=== PATIENT | male | born 1940 | race Caucasian/White ===

== ENCOUNTER → 2017-03-09 | Outpatient (CLI) | payer MEDICARE ==
[~2017-03-09] MED LIST: ASPI1TAB PO; AZIL1TAB PO; FISH5CAP PO; FURO40TA2 PO; KLOR1TAB69 PO; METO-207 PO; PRAV40TA2 PO; PRESCAP PO; REFR0.5D8 OU; ROPI0.5T PO; ROPI1TAB PO; SINE25TA5 PO; TOPR50TA PO; VITA10006 PO; VITMTA PO; XARE20TA PO
[2017-03-09 13:19] LABS: BASO # 0.1 K/mm3 (0.0-0.2); BASO % 0.6 % (0.0-1.0); EOS # 0.2 K/mm3 (0.0-0.50); EOS % 1.5 % (0.0-3.0); LARGE UNSTAINED CELL # 0.1 K/mm3 (0.0-0.4); LARGE UNSTAINED CELL % 1.4 % (0.0-4.0); LYMPH # 1.9 K/mm3 (1.5-4.5); LYMPH % 17.2 % (24.0-44.0); MEAN CORPUSCULAR HEMOGLOBIN 31.8 pg (27.0-33.0); MEAN CORPUSCULAR HGB CONC 33.7 g/dl (32.0-36.5); MEAN CORPUSCULAR VOLUME 94.1 fl (80.0-96.0); MONO # 0.5 K/mm3 (0.0-0.8); MONO % 4.7 % (0.0-5.0); NEUTROPHILS # 7.8 K/mm3 (1.8-7.7); NEUTROPHILS % 74.6 % (36.0-66.0); PLATELET COUNT, AUTOMATED 134 k/mm3 (150-450); RED CELL DISTRIBUTION WIDTH 13.4 % (11.5-14.5); WHITE BLOOD COUNT 10.4 K/mm3 (4.0-10.0)
[2017-03-09 14:11] LABS: ALBUMIN/GLOBULIN RATIO 1.29 (1.00-1.93); ALKALINE PHOSPHATASE 61 U/L (45-117); ALT/SGPT 26 U/L (12-78); ANION GAP 8 MEQ/L (8-16); AST/SGOT 16 U/L (15-37); BILIRUBIN,TOTAL 1.1 MG/DL (0.2-1.0); BLOOD UREA NITROGEN 19 MG/DL (7-18); CARBON DIOXIDE LEVEL 31 MEQ/L (21-32); CHLORIDE LEVEL 102 MEQ/L (98-107); CHOLESTEROL LEVEL 82 MG/DL (<200); CREATININE FOR GFR 0.98 MG/DL (0.70-1.30); GLOMERULAR FILTRATION RATE > 60.0 (>42); GLUCOSE, FASTING 146 MG/DL (83-110); POTASSIUM SERUM 4.1 MEQ/L (3.5-5.1); SODIUM LEVEL 141 MEQ/L (136-145); TOTAL PROTEIN 7.1 GM/DL (6.4-8.2); TRIGLYCERIDES LEVEL 91 MG/DL (<150)
== END ==
LOC: M SMT 11:13
PROVIDERS: ATTEND Family Medicine
DX: E11.65 Type 2 diabetes mellitus with hyperglycemia (principal); I48.0 Paroxysmal atrial fibrillation

== ENCOUNTER → 2017-06-14 | Outpatient (CLI) | payer MEDICARE ==
[~2017-06-14] MED LIST changes: -METO-207 PO; +METO1TAB7 PO
[2017-06-14 13:35] LABS: ALBUMIN 4.1 GM/DL (3.2-5.2); ALBUMIN/GLOBULIN RATIO 1.46 (1.00-1.93); ALKALINE PHOSPHATASE 50 U/L (45-117); ALT/SGPT 18 U/L (12-78); ANION GAP 6 MEQ/L (8-16); AST/SGOT 21 U/L (15-37); BILIRUBIN,TOTAL 0.8 MG/DL (0.2-1.0); BLOOD UREA NITROGEN 22 MG/DL (7-18); CALCIUM LEVEL 8.7 MG/DL (8.8-10.2); CARBON DIOXIDE LEVEL 31 MEQ/L (21-32); CHLORIDE LEVEL 103 MEQ/L (98-107); CHOLESTEROL LEVEL 68 MG/DL (<200); CREATININE FOR GFR 0.96 MG/DL (0.70-1.30); GLOMERULAR FILTRATION RATE > 60.0 (>42); GLUCOSE, FASTING 116 MG/DL (83-110); POTASSIUM SERUM 4.3 MEQ/L (3.5-5.1); SODIUM LEVEL 140 MEQ/L (136-145); TOTAL PROTEIN 6.9 GM/DL (6.4-8.2); TRIGLYCERIDES LEVEL 49 MG/DL (<150)
== END ==
LOC: M SMT 08:15
PROVIDERS: ATTEND Family Medicine
DX: E11.65 Type 2 diabetes mellitus with hyperglycemia (principal); E78.5 Hyperlipidemia, unspecified

== ENCOUNTER → 2017-09-11 | Outpatient (CLI) | payer MEDICARE ==
[2017-09-11 14:56] LABS: ANION GAP 4 MEQ/L (8-16); BLOOD UREA NITROGEN 18 MG/DL (7-18); CALCIUM LEVEL 8.6 MG/DL (8.8-10.2); CARBON DIOXIDE LEVEL 35 MEQ/L (21-32); CHLORIDE LEVEL 100 MEQ/L (98-107); CREATININE FOR GFR 0.93 MG/DL (0.70-1.30); GLOMERULAR FILTRATION RATE > 60.0 (>42); GLUCOSE, FASTING 123 MG/DL (83-110); SODIUM LEVEL 139 MEQ/L (136-145)
== END ==
LOC: M SMT 11:23
PROVIDERS: ATTEND Family Medicine
DX: E11.65 Type 2 diabetes mellitus with hyperglycemia (principal); E78.5 Hyperlipidemia, unspecified; R05 Cough

== ENCOUNTER → 2018-03-22 | Outpatient (CLI) | payer MEDICARE | LOC: M SMT 10:33 | DX: J16.8 Pneumonia due to other specified infectious organisms (principal) | CPT/HCPCS: 71046 ==

== ENCOUNTER → 2018-06-12 | Outpatient (CLI) | payer MEDICARE ==
[2018-06-12 13:36] LABS: ALBUMIN/GLOBULIN RATIO 1.25 (1.00-1.93); ALKALINE PHOSPHATASE 57 U/L (45-117); ALT/SGPT 16 U/L (12-78); ANION GAP 6 MEQ/L (8-16); AST/SGOT 21 U/L (7-37); BILIRUBIN,TOTAL 1.2 MG/DL (0.2-1.0); BLOOD UREA NITROGEN 24 MG/DL (7-18); CALCIUM LEVEL 8.9 MG/DL (8.8-10.2); CARBON DIOXIDE LEVEL 32 MEQ/L (21-32); CHLORIDE LEVEL 102 MEQ/L (98-107); CHOLESTEROL LEVEL 66 MG/DL (<200); CHOLESTEROL RISK RATIO 1.736 (<5); CREATININE FOR GFR 1.05 MG/DL (0.70-1.30); ESTIMATED AVERAGE GLUCOSE 157 MG/DL (60-110); FREE T4 1.04 NG/DL (0.76-1.46); GLOMERULAR FILTRATION RATE > 60.0 (>42); GLUCOSE, FASTING 152 MG/DL (70-100); HDL CHOLESTEROL 38 MG/DL (>40); HEMOGLOBIN A1c 7.1 %; LDL CHOLESTEROL 17.4 MG/DL (<100); NON-HDL-C 28 MG/DL; POTASSIUM SERUM 4.6 MEQ/L (3.5-5.1); SODIUM LEVEL 140 MEQ/L (136-145); THYROID STIMULATING HORMONE 0.978 uIU/ML (0.358-3.740); TOTAL PROTEIN 7.2 GM/DL (6.4-8.2); TRIGLYCERIDES LEVEL 53 MG/DL (<150)
[2018-06-12 13:42] LABS: CREATININE, URINE 40.5 MG/DL; MALB URINE SIEMENS < 5.0 MG/L; MAU/CREAT RATIO 12.3 MCG/MG (0.0-30.0)
== END ==
LOC: M SMT 09:02
DX: E11.65 Type 2 diabetes mellitus with hyperglycemia (principal); E78.5 Hyperlipidemia, unspecified
CPT/HCPCS: 84443

== ENCOUNTER → 2018-09-21 | Outpatient (CLI) | payer MEDICARE ==
[2018-09-21 13:27] LABS: ANION GAP 6 MEQ/L (8-16); BLOOD UREA NITROGEN 22 MG/DL (7-18); CALCIUM LEVEL 9.4 MG/DL (8.8-10.2); CARBON DIOXIDE LEVEL 35 MEQ/L (21-32); CHLORIDE LEVEL 100 MEQ/L (98-107); CREATININE FOR GFR 1.06 MG/DL (0.70-1.30); GLOMERULAR FILTRATION RATE > 60.0 (>42); GLUCOSE, FASTING 211 MG/DL (70-100); POTASSIUM SERUM 4.5 MEQ/L (3.5-5.1); SODIUM LEVEL 141 MEQ/L (136-145)
[2018-09-21 15:03] LABS: ESTIMATED AVERAGE GLUCOSE 177 MG/DL (60-110); HEMOGLOBIN A1c 7.8 %
== END ==
LOC: M SMT 08:41
DX: Z00.00 Encounter for general adult medical examination without abnormal findings (principal); E11.65 Type 2 diabetes mellitus with hyperglycemia
CPT/HCPCS: 83036

== ENCOUNTER → 2019-03-21 | Outpatient (CLI) | payer MEDICARE ==
[~2019-03-21] MED LIST changes: -ASPI1TAB PO; +ASPI81TA26 PO
[2019-03-21 14:07] LABS: BASO % 0.5 % (0.0-1.0); EOS # 0.1 10^3/uL (0.0-0.50); EOS % 1.5 % (0.0-3.0); HEMATOCRIT 45.2 % (42.0-52.0); HEMOGLOBIN 14.6 g/dl (13.5-17.5); LYMPH # 1.6 10^3/uL (1.5-4.5); LYMPH % 20.1 % (24.0-44.0); MEAN CORPUSCULAR HEMOGLOBIN 30.9 pg (27.0-33.0); MEAN CORPUSCULAR HGB CONC 32.3 g/dl (32.0-36.5); MEAN CORPUSCULAR VOLUME 95.6 fl (80.0-96.0); MONO # 0.6 10^3/uL (0.0-0.8); MONO % 7.3 % (0.0-5.0); NEUTROPHILS # 5.5 10^3/uL (1.8-7.7); NEUTROPHILS % 70.1 % (36.0-66.0); PLATELET COUNT, AUTOMATED 132 10^3/uL (150-450); RED BLOOD COUNT 4.73 10^6/uL (4.30-6.10); WHITE BLOOD COUNT 7.8 10^3/uL (4.0-10.0)
[2019-03-21 14:21] LABS: ALT/SGPT 21 U/L (12-78); BILIRUBIN,TOTAL 0.7 MG/DL (0.2-1.0); BLOOD UREA NITROGEN 21 MG/DL (7-18); CALCIUM LEVEL 9.4 MG/DL (8.8-10.2); CARBON DIOXIDE LEVEL 29 MEQ/L (21-32); CHLORIDE LEVEL 102 MEQ/L (98-107); CHOLESTEROL LEVEL 64 MG/DL (<200); CHOLESTEROL RISK RATIO 1.828 (<5); CREATININE FOR GFR 0.93 MG/DL (0.70-1.30); GLOMERULAR FILTRATION RATE > 60.0 (>42); GLUCOSE, FASTING 132 MG/DL (70-100); HDL CHOLESTEROL 35 MG/DL (>40); LDL CHOLESTEROL 20 MG/DL (<100); NON-HDL-C 29 MG/DL; POTASSIUM SERUM 4.4 MEQ/L (3.5-5.1); SODIUM LEVEL 139 MEQ/L (136-145); TOTAL PROTEIN 6.5 GM/DL (6.4-8.2); TRIGLYCERIDES LEVEL 47 MG/DL (<150)
[2019-03-21 15:38] LABS: HEMOGLOBIN A1c 7.4 %
== END ==
LOC: M SMT 09:40
PROVIDERS: ATTEND Family Medicine
DX: E11.65 Type 2 diabetes mellitus with hyperglycemia (principal); E78.5 Hyperlipidemia, unspecified; I11.0 Hypertensive heart disease with heart failure

== ENCOUNTER → 2019-08-26 | Outpatient (CLI) | payer MEDICARE ==
[2019-08-26 13:59] LABS: BASO # 0.1 10^3/uL (0.0-0.2); BASO % 0.6 % (0.0-1.0); EOS # 0.2 10^3/uL (0.0-0.5); EOS % 1.7 % (0.0-3.0); HEMATOCRIT 47.2 % (42.0-52.0); HEMOGLOBIN 14.7 g/dl (13.5-17.5); LYMPH # 1.5 10^3/uL (1.5-5.0); MEAN CORPUSCULAR HEMOGLOBIN 29.9 pg (27.0-33.0); MEAN CORPUSCULAR HGB CONC 31.1 g/dl (32.0-36.5); MEAN CORPUSCULAR VOLUME 95.9 fl (80.0-96.0); MONO # 0.8 10^3/uL (0.0-0.8); MONO % 8.1 % (0.0-5.0); NEUTROPHILS # 7.2 10^3/uL (1.5-8.5); NEUTROPHILS % 73.9 % (36.0-66.0); PLATELET COUNT, AUTOMATED 195 10^3/uL (150-450); RED BLOOD COUNT 4.92 10^6/uL (4.30-6.10); WHITE BLOOD COUNT 9.8 10^3/uL (4.0-10.0)
[2019-08-26 14:03] LABS: ALT/SGPT 16 U/L (12-78); BILIRUBIN,TOTAL 0.9 MG/DL (0.2-1.0); BLOOD UREA NITROGEN 22 MG/DL (7-18); CALCIUM LEVEL 9.1 MG/DL (8.8-10.2); CARBON DIOXIDE LEVEL 30 MEQ/L (21-32); CHLORIDE LEVEL 100 MEQ/L (98-107); CREATININE FOR GFR 1.03 MG/DL (0.70-1.30); GLOMERULAR FILTRATION RATE > 60.0 (>42); GLUCOSE, FASTING 135 MG/DL (70-100); POTASSIUM SERUM 4.4 MEQ/L (3.5-5.1); SODIUM LEVEL 137 MEQ/L (136-145); TOTAL PROTEIN 7.3 GM/DL (6.4-8.2)
== END ==
LOC: M SMT 09:30
PROVIDERS: ATTEND Physician Assistant
DX: Z00.00 Encounter for general adult medical examination without abnormal findings (principal); E11.65 Type 2 diabetes mellitus with hyperglycemia; I48.20 Chronic atrial fibrillation, unspecified

== ENCOUNTER 2020-02-22 11:02 | Inpatient (IN) | payer MEDICARE ==
[~2020-02-22] VITALS: Ht 175.3 cm; Wt 80.9 kg
[~2020-02-22 11:02] MED LIST changes: -ROPI0.5T PO; +ROPI0.5T3 PO; -ROPI1TAB PO; +ROPI1TAB3 PO
[2020-02-22 11:50] LABS: BASO % 0.2 % (0.0-1.0); EOS # 0.1 10^3/uL (0.0-0.5); EOS % 1.1 % (0.0-3.0); HEMATOCRIT 29.9 % (42.0-52.0); HEMOGLOBIN 9.2 g/dl (13.5-17.5); LYMPH # 0.7 10^3/uL (1.5-5.0); LYMPH % 5.9 % (24.0-44.0); MEAN CORPUSCULAR HEMOGLOBIN 26.7 pg (27.0-33.0); MEAN CORPUSCULAR HGB CONC 30.8 g/dl (32.0-36.5); MEAN CORPUSCULAR VOLUME 86.9 fl (80.0-96.0); MONO # 0.5 10^3/uL (0.0-0.8); MONO % 4.6 % (0.0-5.0); NEUTROPHILS # 9.8 10^3/uL (1.5-8.5); NEUTROPHILS % 87.4 % (36.0-66.0); PLATELET COUNT, AUTOMATED 261 10^3/uL (150-450); RED BLOOD COUNT 3.44 10^6/uL (4.30-6.10); WHITE BLOOD COUNT 11.2 10^3/uL (4.0-10.0)
[2020-02-22] MEDS ORDERED: LISI-1046 PO (12:06)
[2020-02-22] MEDS ORDERED: AMAN100T PO (12:06)
[2020-02-22] MEDS ORDERED: SPIR-10 PO (12:06)
[2020-02-22] MEDS ORDERED: QUET5TAB PO (12:06)
[2020-02-22] MEDS ORDERED: METF-791 PO (12:06)
[2020-02-22] MEDS ORDERED: JARD1TAB PO (12:06)
[2020-02-22] MEDS ORDERED: METF-839 PO (12:06)
[2020-02-22] MEDS ORDERED: DIGO0.253 PO (12:06)
[2020-02-22] MEDS ORDERED: QUET1TAB7 PO (12:06)
[2020-02-22] MEDS ORDERED: ATOR40TA75 PO (12:06)
[2020-02-22] MEDS ORDERED: BISO5TAB14 PO (12:06)
[2020-02-22 12:23] LABS: ALBUMIN 3.6 GM/DL (3.2-5.2); ALT/SGPT 9 U/L (12-78); BILIRUBIN,DIRECT 0.2 MG/DL (0.0-0.2); BILIRUBIN,TOTAL 0.6 MG/DL (0.2-1.0); BLOOD UREA NITROGEN 42 MG/DL (7-18); CARBON DIOXIDE LEVEL 26 MEQ/L (21-32); CHLORIDE LEVEL 98 MEQ/L (98-107); CK-MB VALUE MASS 1.6 NG/ML (<3.6); CPK CREATINE PHOSPHOKINASE 44 U/L (39-308); CREATININE FOR GFR 1.91 MG/DL (0.70-1.30); GLOMERULAR FILTRATION RATE 36.5 (>42); GLUCOSE, FASTING 157 MG/DL (70-100); MB/CK RELATIVE INDEX 3.64 (< OR =4); NT-PRO BNP 2987 PG/ML (<450); POTASSIUM SERUM 4.7 MEQ/L (3.5-5.1); SODIUM LEVEL 134 MEQ/L (136-145); TOTAL PROTEIN 6.8 GM/DL (6.4-8.2); TROPONIN I < 0.02 NG/ML (< 0.10)
--- NOTE | 2020-02-22 12:24 | REP ---
Clinical: Cough and dyspnea . Comparison: 03/22/2018 . Findings: The mediastinum and cardiac silhouette are stable and within normal limits for portable technique. The lung cota are clear without acute consolidation, effusion, or pneumothorax. Skeletal structures are intact. Impression: No acute cardiopulmonary process appreciated. Electronically Signed by Isma Byrd MD 02/22/2020 12:15 P
[2020-02-22] MEDS ORDERED: NS 1,000 ML IV ONE ×2 (12:45→17:00)
[2020-02-22 13:13] LABS: INR 1.83
[2020-02-22 13:14] LABS: PARTIAL THROMBOPLASTIN TIME 35.3 SECONDS (25.0-38.4)
[2020-02-22 13:16] LABS: D-DIMER QUANT 902.58 ng/ml (<500)
[2020-02-22 13:23] LABS: C REACTIVE PROTEIN QUANTITATIV < 0.30 MG/DL (0.00-0.30); FERRITIN 42 NG/ML (26-388); LDH LACTATE DEHYDROGENASE 154 U/L (87-241)
--- NOTE | 2020-02-22 14:28 | REP ---
Clinical: Chest pain with nausea and vomiting. Elevated lipase levels. Technique: Axial noncontrast images from the thoracic inlet to the upper abdomen with coronal and sagittal re-formations. Findings: Early emphysematous changes are appreciated along with mild bronchiectasis. No focal consolidation, significant nodule, or mass lesion appreciated. No pleural effusion. No pneumothorax. No obvious adenopathy. Mediastinum demonstrates atherosclerotic changes to the thoracic aorta and coronary arteries without aortic aneurysm or cardiomegaly. No pericardial effusion. Enlarged left thyroid lobe noted. Musculoskeletal structures demonstrate age-related degenerative changes without focal abnormality. Impression: 1. Early emphysematous changes. 2. No acute pleuroparenchymal process. 3. Enlarged left thyroid lobe suggesting goiter. Electronically Signed by Isma Byrd MD 02/22/2020 02:20 P
--- NOTE | 2020-02-22 14:32 | REP ---
Clinical: Abdominal pain with nausea and vomiting. Elevated lipase levels. Technique: Axial noncontrast images from the lung bases to the pubic symphysis with coronal and sagittal re-formations. Findings: Liver, spleen, pancreas, bilateral adrenal glands and kidneys are normal for noncontrast evaluation. Cholelithiasis noted without acute cholecystitis. The enteric system is without obstruction or acute inflammatory process. Scattered colonic diverticula noted without acute diverticulitis. Pelvis demonstrates normal bladder along with mild prostatomegaly. No ascites. No free air. No adenopathy. Atherosclerotic changes to the aorta and vasculature noted without aneurysm. Musculoskeletal structures demonstrate degenerative changes without osseous abnormality. Impression: 1. Cholelithiasis. 2. Diverticulosis. 3. No acute abdominopelvic pathology appreciated. Electronically Signed by Isma Byrd MD 02/22/2020 02:23 P
[2020-02-22] MEDS ORDERED: VANCOMYCIN HCL 1,000 MG, VIAL MATE ADAPTER 1 EACH in D5W 250 ML IV ONE (14:45)
[2020-02-22] MEDS ORDERED: PIPERACILLIN/TAZOBACTAM SOD 3.375 GM in D5W MINI-BAG PLUS 50 ML IV ONE (14:45)
[2020-02-22] MEDS ORDERED: ACETAMINOPHEN TAB 650MG DOSE (2X325MG) PO PRN (16:30)
[2020-02-22] MEDS ORDERED: ASCO500T PO (16:39)
[2020-02-22] MEDS ORDERED: FURO40TA2 PO (16:41)
[2020-02-22] MEDS ORDERED: OMEG12003 PO (16:41)
[2020-02-22] MEDS ORDERED: METF500T13 PO (16:43)
[2020-02-22] MEDS ORDERED: NITR0.4S14 SL (16:47)
[2020-02-22] MEDS ORDERED: VITA-157 PO (16:47)
[2020-02-22 17:26] LABS: DIGOXIN LEVEL 2.1 NG/ML (0.5-2.0); IRON (FE) 21 UG/DL (65-175); PERCENT SATURATION 6.1 % (19.7-50.0); TOTAL IRON BINDING CAPACITY 347 UG/DL (250-450)
[2020-02-22 17:33] LABS: ERYTHROCYTE SEDIMENTATION RATE 49 mm/hr (0-20)
[2020-02-22] MEDS ORDERED: ONDANSETRON 4MG/2ML VIAL IV PRN (18:00)
--- NOTE | 2020-02-22 19:34 | ECGEPIP ---
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
[2020-02-22 19:35] VITALS: BP_SYST 127; BP_SYST 148; BP_SYST 151; BP_DIAS 59; BP_DIAS 64; BP_DIAS 67
[2020-02-22] MEDS ORDERED: LEVALBUTEROL 1.25 MG/0.5 ML CONCENTRATE NEB INH PRN (20:30)
[2020-02-22] MEDS ORDERED: NS 1,000 ML IV SCH (20:45)
[2020-02-22] MEDS: FERROUS SULFATE 325MG TAB PO SCH (20:52)
[2020-02-22] MEDS: SINEMET 25-100 MG TAB PO SCH (20:53)
[2020-02-22] MEDS: ATORVASTATIN 20 MG TAB PO SCH (20:53)
[2020-02-22] MEDS: rOPINIRole 1MG TAB PO SCH (20:53)
[2020-02-22] MEDS: RIVAROXABAN 20 MG TAB (XARELTO) PO SCH (20:53)
[2020-02-22] MEDS: QUEtiapine FUMARATE 50 MG TAB PO SCH (20:53)
[2020-02-22] MEDS: OCUVITE 1 TAB PO SCH (20:54)
[2020-02-22 21:38] VITALS: BP_SYST 120; BP_SYST 130; BP_SYST 88; BP_DIAS 40; BP_DIAS 48; BP_DIAS 88
[2020-02-22] MEDS ORDERED: NS 500 ML IV ONE (21:45)
[2020-02-22 22:00] VITALS: BP 137/66
[2020-02-22] MEDS: LEVALBUTEROL 1.25 MG/0.5 ML CONCENTRATE NEB INH SCH (23:18)
[2020-02-22 23:41] LABS: C REACTIVE PROTEIN QUANTITATIV 0.3 MG/DL (0.00-0.30); CK-MB VALUE MASS 2.7 NG/ML (<3.6); CREATININE FOR GFR 1.64 MG/DL (0.70-1.30); FREE THYROXINE INDEX 2.6 % (1.4-3.8); GLOMERULAR FILTRATION RATE 43.5 (>42); MB/CK RELATIVE INDEX 3.29 (< OR =4); POTASSIUM SERUM 4.2 MEQ/L (3.5-5.1); THYROID STIMULATING HORMONE 1.2 uIU/ML (0.358-3.740); THYROXINE (T4) 5.8 UG/DL (4.5-12.0); TROPONIN I 0.02 NG/ML (< 0.10)
[2020-02-23 01:45] LABS: CK-MB VALUE MASS 2.6 NG/ML (<3.6); CPK CREATINE PHOSPHOKINASE 82 U/L (39-308); MB/CK RELATIVE INDEX 3.17 (< OR =4); TROPONIN I < 0.02 NG/ML (< 0.10)
[2020-02-23 02:30] VITALS: BP_SYST 132; BP_SYST 140; BP_SYST 143; BP_DIAS 59; BP_DIAS 64
[2020-02-23] MEDS: LEVALBUTEROL 1.25 MG/0.5 ML CONCENTRATE NEB INH SCH ×6 (04:00→23:44)
[2020-02-23 05:33] LABS: BASO % 0.3 % (0.0-1.0); EOS # 0.2 10^3/uL (0.0-0.5); EOS % 2.7 % (0.0-3.0); HEMATOCRIT 23.8 % (42.0-52.0); HEMOGLOBIN 7.5 g/dl (13.5-17.5); LYMPH # 0.8 10^3/uL (1.5-5.0); LYMPH % 9.9 % (24.0-44.0); MEAN CORPUSCULAR HGB CONC 31.5 g/dl (32.0-36.5); MEAN CORPUSCULAR VOLUME 85.6 fl (80.0-96.0); MONO # 0.6 10^3/uL (0.0-0.8); MONO % 7.4 % (0.0-5.0); NEUTROPHILS # 6.1 10^3/uL (1.5-8.5); NEUTROPHILS % 79.3 % (36.0-66.0); PLATELET COUNT, AUTOMATED 206 10^3/uL (150-450); RED BLOOD COUNT 2.78 10^6/uL (4.30-6.10); WHITE BLOOD COUNT 7.7 10^3/uL (4.0-10.0)
[2020-02-23 05:58] LABS: CK-MB VALUE MASS 2.5 NG/ML (<3.6); CPK CREATINE PHOSPHOKINASE 80 U/L (39-308); MB/CK RELATIVE INDEX 3.12 (< OR =4); TROPONIN I < 0.02 NG/ML (< 0.10)
[2020-02-23 06:00] VITALS: BP 137/66
[2020-02-23 06:09] LABS: CALCIUM LEVEL 7.9 MG/DL (8.8-10.2); CREATININE FOR GFR 1.32 MG/DL (0.70-1.30); DIGOXIN LEVEL 1.4 NG/ML (0.5-2.0); GLOMERULAR FILTRATION RATE 55.8 (>42)
[2020-02-23] MEDS: NS 1,000 ML IV SCH ×2 (06:43→16:22)
--- NOTE | 2020-02-23 07:15 | REP ---
Clinical: Shortness of breath . Comparison: 02/22/2020 of the . Findings: The mediastinum and cardiac silhouette are stable and within normal limits for portable technique. The lung cota are clear without acute consolidation, effusion, or pneumothorax. Skeletal structures are intact. Impression: No acute cardiopulmonary process appreciated. Electronically Signed by Isma Byrd MD 02/23/2020 07:06 A
[2020-02-23] MEDS: AMANTADINE 100MG TABLET PO SCH ×2 (08:02→12:15)
[2020-02-23 08:12] LABS: FERRITIN 44 NG/ML (26-388); IRON (FE) 24 UG/DL (65-175); LDH LACTATE DEHYDROGENASE 119 U/L (87-241); PERCENT SATURATION 8.6 % (19.7-50.0); TOTAL IRON BINDING CAPACITY 279 UG/DL (250-450)
[2020-02-23 08:57] LABS: HEMATOCRIT 25.3 % (42.0-52.0); HEMOGLOBIN 7.9 g/dl (13.5-17.5)
[2020-02-23] MEDS ORDERED: DIGOXIN 0.25 MG TAB PO SCH (09:00)
[2020-02-23] MEDS ORDERED: AZILECT 1 MG PO SCH (09:00)
[2020-02-23] MEDS: MULTIVITAMINS/MINERALS THERAP 1 TAB PO SCH (09:18)
[2020-02-23] MEDS: OCUVITE 1 TAB PO SCH ×2 (09:18→20:17)
[2020-02-23] MEDS: VITAMIN E 400 INTERNATIONAL UNITS CAP PO SCH (09:18)
[2020-02-23] MEDS: FERROUS SULFATE 325MG TAB PO SCH (09:18)
[2020-02-23] MEDS: rOPINIRole 1MG TAB PO SCH ×4 (09:18→20:17)
[2020-02-23] MEDS: SINEMET 25-100 MG TAB PO SCH ×4 (09:18→20:17)
[2020-02-23] MEDS: ASCORBIC ACID 500 MG TAB PO SCH (09:18)
[2020-02-23] MEDS: bisoproloL fumarate 5 MG TAB PO SCH ×2 (09:19→20:17)
[2020-02-23 10:30] VITALS: BP_SYST 125; BP_SYST 126; BP_SYST 88; BP_DIAS 46; BP_DIAS 53; BP_DIAS 58
[2020-02-23] MEDS ORDERED: SALIVA SUBSTITUTE(MOUTHKOTE) BTL MT PRN (11:30)
[2020-02-23] MEDS ORDERED: PROMETHAZINE INJ 25 MG/ML VIAL (J2550) IV PRN (11:30)
[2020-02-23 14:00] VITALS: BP 112/66
--- NOTE | 2020-02-23 14:28 | HPE ---
DATE OF ADMISSION: 02/22/2020 CHIEF COMPLAINT: Nausea and vomiting for 2 days. HISTORY OF PRESENTING ILLNESS: This is a 80-year-old FULL CODE with history of atrial fibrillation on chronic Xarelto, congestive heart failure (CHF), diastolic dysfunction, mild pulmonary hypertension on previous echocardiogram in 2015, 20 pack-year history of smoking without a diagnosis of chronic obstructive pulmonary disease (COPD) or emphysema in the past, right lower extremity deep venous thrombosis (DVT) in the 1980s but no pulmonary embolism (PE) in the past, hypertension, diet-controlled diabetes, and Parkinson disease, which has worsened over the past 3 months. He was brought in by ambulance after he had two episodes of vomiting at home. According to the , patient has not felt well, has not "felt good since [place]." For the past 3 months, he has been having worsening tremors, gait imbalance with significant decline in his activities of daily living (ADLs). The says that she usually sleeps in a recliner next to him because he likes to get up in the middle of the night and walk around, usually moving furniture as his balance has been off. He has had worsening falls since December 2019 but none since they have been back home in the [facility]. They were in [place] and returned home at the end of December 2019 because of the coronavirus and have been staying home. According to the , she usually gets groceries and leaves him at home. He has not been sleeping well at night and did use some Ambien but developed a rash, so this has been discontinued. His mentation has worsened. When she calls him to eat dinner, he usually will stare at her for a few minutes, not knowing what is going on. The then will take his arms and put him on a wheeled walker to the table or put his arm over her shoulder to help him walk to the dinner table. Changes in his medication has been the ropinirole, off the 0.5 mg and currently on [address] Liz. He usually sleeps only an hour to 1-1/2 hours during the night and sleeps all day long, but for the past 2 days, he has complained to his that his stomach was not feeling well. He vomited yesterday, nonbilious, non-projectile vomiting without fever or chills, cough, shortness of breath, abdominal pain aside from the achiness, and rated the pain in the epigastric region as 4-5 out of 10. He has had a weight loss of about 20 pounds in the past 2-3 months. He did have intentional weight loss from previous 270 pounds to 192 pounds previously but, per the , his appetite has been fine. She usually sees that he eats most of his food. Last night, she made quinoa with mabel-mabel fish. He ate one and a half fish and his green beans. He has had no diarrhea but had a loose stool this morning. He usually drinks three 12-ounce glasses of water, usually in a Yeti cup that she puts ice a quarter of the way up. has noticed that he has been urinating well. He usually eats oatmeal and milk in the morning, a diet Coke that they split together during the day, and if they are having pizza or spaghetti, they split an alcoholic beverage. Into the night last night, patient was unchanged. This morning, he had asked her to make some pancakes and eggs. After making them, as she was ready to put them out, he vomited again. This prompted her to call emergency medical service (EMS) to bring him in to the hospital. Aside from the ropinirole that has been changed to 1 mg and stopping the Ambien, the Seroquel has been increased to 50 mg. There have been no other changes. She denied any recent nonsteroidal antiinflammatory use. There has been no sore throat, and he has been taking his chronic Lasix and spironolactone despite vomiting. In the emergency room (ER), he was found to be hypotensive, pressure of 92/46. Was given IV fluids after found to have acute kidney injury with creatinine of 1.9, lactic acid of 3.3. Due to a slight white count of 11.2, CT chest, abdomen, and pelvis was done. None show any infectious etiology. Patient was given vancomycin and Zosyn. He is afebrile. Hospitalist was called to admit for acute kidney injury along with possible sepsis in light of lactic acidosis, slight increase in white count, hypotension. PAST MEDICAL HISTORY: 1. Congestive heart failure, diastolic dysfunction. Last echocardiogram was 2014. 2. Atrial fibrillation, on chronic Xarelto. 3. CVA. 4. Right lower extremity DVT in . 5. Parkinson disease, which has worsened and followed by Dr. Liz at [facility]. 6. Patient was morbidly obese in the past, currently with a body mass index (BMI) of 25.9. 7. Diet-controlled diabetes. 8. Melanoma to his neck. 9. Hyperlipidemia. 10. Hypertension. PAST SURGICAL HISTORY: 1. Colonoscopy. 2. Tonsillectomy. 3. Melanoma resection on the neck. ALLERGIES: To LATEX (rash); MUSHROOM per the ; AMBIEN, causing a rash. HOME MEDICATIONS: - bisoprolol 5 mg twice a day - Lasix 40 daily - lisinopril 2.5 daily - metformin 1 gram by mouth nightly - metformin 500 every morning - nitroglycerin as needed - spironolactone 25 daily - Jardiance 10 mg daily - omega-3, 1200 mg twice a day - rasagiline 1 mg daily - amantadine 100 mg twice a day - vitamin C 1 gram daily - atorvastatin 40 mg nightly - Sinemet 25/100 two tablets four times a day - digoxin 250 mcg every morning - multivitamin one tablet daily - quetiapine 25 every evening - Xarelto 20 nightly - ropinirole 1 mg four times a day - PreserVision AREDS one capsule twice a day - vitamin E 400 units daily SOCIAL HISTORY: Patient currently is a FULL CODE with chest compression, cardiopulmonary resuscitation (CPR), trial of intubation. Healthcare proxy is the patient's , Maite Hoang (cell phone number is [phone], home number [phone]). Patient previously smoked a pack per day for 20 years with a 20 pack-year history of smoking, quit in 1979. No alcohol or drug use. Patient has an occasional alcoholic beverage, a beer with his , which he splits, once in a blue ortiz. He lives at home with his spouse and cat in [place]. 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 FAMILY HISTORY: Father age 62 of coronary artery disease (CAD), myocardial infarction ([place]). Mother age 96 of old age. Patient has two siblings with type 2 diabetes. REVIEW OF SYSTEMS: Per history of presenting illness (HPI), 12-point system otherwise negative. PHYSICAL EXAMINATION: Temperature 96.5, pulse 84, respiratory rate 18, blood pressure 92/46, 97% on room air. GENERALLY: Patient is awake, alert, oriented to himself. Answers questions appropriately. He is able to state that he is at [place], [place]. He is disoriented to the year but answers questions and is cooperative. No jugular venous distention (JVD) or thyromegaly. Patient has dry mucous membranes. Face is symmetric. Tongue is midline. LUNGS: Clear to auscultation. There is no wheezing, rales, or rhonchi. Air entry is equal. No adventitious breath sounds. HEART: S1, S2, irregularly irregular. Patient has a systolic ejection murmur at the apex, 2/6. ABDOMEN: Soft, nontender, nondistended. Positive bowel sounds times four quadrants. No fluid wave. No abdominal bruit. EXTREMITIES: Have no pitting edema. LABORATORY DATA: White count 11.2, hemoglobin 9.2, hematocrit 29.9, platelet count 261, 87% neutrophils. Sodium 134, potassium 4.7, chloride 98, bicarbonate 26, BUN 42, creatinine 1.91, glucose 157, lactic acid 3.3. Repeat lactic acid of 1.9. Calcium 9, iron 21, TIBC 347, transferrin 6.1, ferritin 42, total bilirubin 0.6, direct bilirubin 0.2, AST 17, ALT 9, alkaline phosphatase 98, LDH 154, total CK 44, MB fraction 1.6, troponin less than 0.02, C-reactive protein less than 0.3, BNP of 2987, total protein of 6.8. Procalcitonin is pending. PSA screen is 2.8, TSH 1.74. Sedimentation rate of 49. Urinalysis: 3+ glucose, trace ketones, negative nitrite, negative leukocyte esterase, 1 WBC. Digoxin is 2.1. IMAGING STUDIES: CT chest, abdomen, and pelvis: No acute abnormality. Early emphysema on CT chest. Enlarged left thyroid suggestive of goiter. Cholelithiasis. Diverticulosis. No acute abdominal/pelvic pathology appreciated. ASSESSMENT AND PLAN: 80-year-old male with history of atrial fibrillation on chronic Xarelto, digoxin, congestive heart failure (CHF), diastolic dysfunction, previous echocardiogram was 2014, ejection fraction (EF) of 75%, history of right lower extremity deep venous thrombosis in 1980s, CVA, hyperlipidemia, hypertension, melanoma to his neck, diet-controlled diabetes, morbid obesity, Parkinson's with worsening gait, requiring assistance with his activities of daily living. Patient presents with two episodes of vomiting at home. Found to have elevated digoxin level of 2.1 and renal failure, creatinine of 1.9. ACTIVE ISSUES ARE FOLLOWS: 1. Digoxin toxicity in the setting of renal failure. Patient's Lasix, spironolactone, digoxin have all been held. No acute indication for Digibind at this time as patient does not have any EKG abnormalities. Will need telemetry monitoring, however. Patient does follow with Dr. Gomez' office for his atrial fibrillation. We will continue to monitor patient. We will recheck digoxin level in the morning. If blood pressure permits, may resume low-dose beta-blockade for rate control. Due to low thyroid-stimulating hormone (TSH), we will need to try to avoid amiodarone; but if needed, may need to use IV amiodarone for rate control. At this time, he appears stable. 2. Weight loss. Most likely related to digoxin toxicity. This was unintentional according to the with resultant vomiting. Patient denies any visual changes, however. 3. Acute kidney injury. CT abdomen and pelvis shows no hydronephrosis. Patient denies any nonsteroidal anti-inflammatory drug (NSAID) use. May be due to overdiuresis, decreased oral intake, and dehydration. Therefore, Lasix, spironolactone will be held, as well as digoxin. We will need to readjust dose once digoxin level is improved. We will use other medications for rate control if blood pressure permits. 4. Atrial fibrillation, on chronic Xarelto. We will resume home dose of Xarelto for now. No signs of any active bleeding despite having some anemia. We will check for iron studies, total iron binding capacity (TIBC), reticulocyte count, as well as stool for blood. 5. Congestive heart failure, diastolic dysfunction, ejection fraction of 75% from previous echocardiogram 2014. Due to complaints of shortness of breath, we will obtain an echocardiogram. That symptom along with the episode of loose stool and vomiting most likely related to digoxin toxicity. 6. Mild pulmonary hypertension with prior history of 20 pack-year smoking. Quit in 1979. Patient has early emphysema noted on the chest x-ray. However, he has no wheezing on examination and does not warrant any treatment for a possible exacerbation. 7. History of CVA, on chronic Xarelto. May resume on statins, Lipitor. 8. Worsening Parkinson disease with gait ataxia. Patient has recently been increased on his Requip to four times a day dosing and placed on Seroquel [address] Liz, [facility]. Patient is a fall risk and, according to the , will need assistance with his ADLs. 9. Anemia of chronic disease. Currently on vitamin C. We will start on ferrous sulfate and a bowel regimen. CODE STATUS: According to the , who is the healthcare proxy, he does want CPR, chest compressions, along with trial of intubation. Healthcare proxy is Maite Hoang (cell phone number [phone], home number is [phone]). [facility] CENTERMarzena
--- NOTE | 2020-02-23 15:14 | ECGEPIP ---
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
[2020-02-23 16:10] LABS: BLOOD UREA NITROGEN 30 MG/DL (7-18); CALCIUM LEVEL 8.5 MG/DL (8.8-10.2); CARBON DIOXIDE LEVEL 26 MEQ/L (21-32); CHLORIDE LEVEL 105 MEQ/L (98-107); GLOMERULAR FILTRATION RATE > 60.0 (>42); GLUCOSE, FASTING 100 MG/DL (70-100); POTASSIUM SERUM 4.1 MEQ/L (3.5-5.1); SODIUM LEVEL 138 MEQ/L (136-145)
[2020-02-23 16:44] LABS: MB/CK RELATIVE INDEX 1.98 (< OR =4); TROPONIN I 0.03 NG/ML (< 0.10)
[2020-02-23] MEDS: DIGOXIN 0.125 MG TAB PO SCH (17:40)
[2020-02-23] MEDS: QUEtiapine FUMARATE 50 MG TAB PO SCH (20:16)
[2020-02-23] MEDS: ATORVASTATIN 20 MG TAB PO SCH (20:17)
[2020-02-23] MEDS: RIVAROXABAN 20 MG TAB (XARELTO) PO SCH (20:17)
[2020-02-23 22:00] VITALS: BP 135/74
[2020-02-24] MEDS: LEVALBUTEROL 1.25 MG/0.5 ML CONCENTRATE NEB INH SCH ×3 (03:14→11:17)
[2020-02-24 06:00] VITALS: BP 136/73
[2020-02-24 06:12] LABS: BASO % 0.3 % (0.0-1.0); EOS # 0.2 10^3/uL (0.0-0.5); EOS % 2.1 % (0.0-3.0); HEMATOCRIT 25.5 % (42.0-52.0); HEMOGLOBIN 7.9 g/dl (13.5-17.5); LYMPH # 1.1 10^3/uL (1.5-5.0); LYMPH % 11.8 % (24.0-44.0); MEAN CORPUSCULAR HEMOGLOBIN 26.8 pg (27.0-33.0); MEAN CORPUSCULAR VOLUME 86.4 fl (80.0-96.0); MONO # 0.7 10^3/uL (0.0-0.8); MONO % 7.6 % (0.0-5.0); NEUTROPHILS # 7.3 10^3/uL (1.5-8.5); NEUTROPHILS % 77.7 % (36.0-66.0); PLATELET COUNT, AUTOMATED 222 10^3/uL (150-450); RED BLOOD COUNT 2.95 10^6/uL (4.30-6.10); WHITE BLOOD COUNT 9.5 10^3/uL (4.0-10.0)
[2020-02-24 06:55] LABS: BLOOD UREA NITROGEN 22 MG/DL (7-18); CALCIUM LEVEL 8.8 MG/DL (8.8-10.2); CARBON DIOXIDE LEVEL 25 MEQ/L (21-32); CHLORIDE LEVEL 104 MEQ/L (98-107); CREATININE FOR GFR 1.05 MG/DL (0.70-1.30); GLOMERULAR FILTRATION RATE > 60.0 (>42); GLUCOSE, FASTING 144 MG/DL (70-100); MAGNESIUM LEVEL 2.1 MG/DL (1.8-2.4); POTASSIUM SERUM 4.2 MEQ/L (3.5-5.1); SODIUM LEVEL 139 MEQ/L (136-145)
[2020-02-24] MEDS: OCUVITE 1 TAB PO SCH (08:48)
[2020-02-24] MEDS: ASCORBIC ACID 500 MG TAB PO SCH (08:48)
[2020-02-24] MEDS: AMANTADINE 100MG TABLET PO SCH ×2 (08:48→12:49)
[2020-02-24] MEDS: VITAMIN E 400 INTERNATIONAL UNITS CAP PO SCH (08:48)
[2020-02-24] MEDS: FERROUS SULFATE 325MG TAB PO SCH (08:48)
[2020-02-24] MEDS: SINEMET 25-100 MG TAB PO SCH ×2 (08:48→12:48)
[2020-02-24 08:49] VITALS: BP 136/73
[2020-02-24] MEDS: MULTIVITAMINS/MINERALS THERAP 1 TAB PO SCH (08:49)
[2020-02-24] MEDS: bisoproloL fumarate 5 MG TAB PO SCH (08:49)
[2020-02-24] MEDS: rOPINIRole 1MG TAB PO SCH ×2 (08:51→12:48)
[2020-02-24] MEDS: DIGOXIN 0.125 MG TAB PO SCH (08:51)
[2020-02-24] MEDS ORDERED: FUROSEMIDE 10MG PER 1/2 TABLET PO SCH (09:00)
[2020-02-24] MEDS ORDERED: DIGO0.123 PO (10:10)
[2020-02-24] MEDS ORDERED: FURO20TA2 PO (10:10)
[2020-02-24 14:00] VITALS: BP 143/78
--- NOTE | 2020-02-24 14:31 | IPN ---
DATE OF SERVICE: 02/23/2020 Patient complains of dry mouth this morning and some nausea. No diarrhea. Patient has had weight loss, anorexia, nausea, vomiting, in the setting of renal failure at home, admitted with creatinine of 1.91. Patient, overnight, has slept well. No repeat vomiting episodes. No diarrhea. No chest pain, pressure, tightness, or shortness of breath. Digoxin had to be held due to elevated level of 2.1 and digoxin toxicity in light of renal failure. Vitals: Temperature 98.6, pulse 64, respiratory 19, blood pressure 125/53, 97% on room air. Generally: Awake, alert, oriented to person, place. Answering questions appropriately. No jugular venous distention (JVD). No thyromegaly. No cervical lymphadenopathy. Dry mucous membranes. Lungs are clear to auscultation. No wheezing or rales. Heart: S1, S2, irregularly irregular and tachycardic. Abdomen is obese, soft, nontender, nondistended. Extremities: No pitting edema, cyanosis, or clubbing. LABORATORY DATA: White count 7.7, hemoglobin 7.5, hematocrit 23.8, platelet count of 206. Sodium 138, potassium 4, chloride 104, bicarbonate 27, BUN 38, creatinine 1.32, glucose of 131. Troponin less than 0.02 times three. Respiratory panel negative. Blood culture, no growth. IMAGING STUDIES: CT chest, abdomen, and pelvis: Early emphysema. No acute parenchymal process. Enlarged left thyroid, questionable goiter. Cholelithiasis. CT abdomen: Cholelithiasis, diverticulosis. No acute abdominal/pelvic pathology appreciated. Repeat chest x-ray, 02/23/2020: No acute cardiopulmonary process. ASSESSMENT AND PLAN: This is a 80-year-old male with history of atrial fibrillation on chronic Eliquis, congestive heart failure (CHF), diastolic dysfunction, follows with Dr. Gomez, history of CVA, right lower extremity deep venous thrombosis (DVT) in 1980s, hypertension, hyperlipidemia, diet-controlled diabetes, obesity, Parkinson disease with worsening gait abnormality, presented with weight loss which was unintentional, gait abnormality, shortness of breath, and intractable nausea, vomiting, found to have digoxin toxicity in the setting of renal failure, creatinine of 1.9. Patient's Lasix, spironolactone, and digoxin have been held. Patient was given intravenous (IV) fluids with some improvement. CT chest, abdomen, and pelvis showed no acute abnormalities. IMPRESSION: 1. Digoxin toxicity. Patient's repeat digoxin level is 1.4. Continues to have some nausea. We are continually holding his digoxin, Lasix, and spironolactone until his creatinine has improved back to baseline of 1. At this time, patient has been resumed on low-dose beta blockade for rate control for his atrial fibrillation. 2. Atrial fibrillation. Resumed on his home dose of Zebeta 5 mg twice a day. He is continued on his home dose of Xarelto. 3. Acute renal failure secondary to vomiting due to digoxin toxicity. Patient is currently on IV fluids and digoxin has been held. A trial of intravenous (IV) fluids. Hold Lasix and spironolactone. 4. Parkinson disease with worsening gait imbalance. Patient has been dependent on his for his activities of daily living (ADLs) at home due to fall risk. Patient has had multiple falls, according to the , since they have returned from [place] at the end of December. Medications have been adjusted by his neurologist, Dr. Liz, but with no significant improvement in his stability. ARU has been consulted. 5. Chronic anemia. Resumed on vitamin C. Patient has been started on iron 325 daily. Patient did receive IV fluids overnight with 3.3 liters and 2.7 this morning, therefore, hemodilutional anemia is most likely the cause. 6. Shortness of breath, resolved. Patient does have early emphysema, as needed albuterol. Patient has no congestive heart failure exacerbation. At this time, appears to be euvolemic. MTDD
--- NOTE | 2020-02-24 14:50 | IPNPDOC ---
Date Seen The patient was seen on 02/24/20. Progress Note Per Dr. Liz, pt's neurologist," continue his medications. It's most likely fromprogressive disease." plan: ariadne w dr. liz within 5days of discharge. ok to dc home. VS, I&O, 24H, Fishbone Vital Signs/I&O Vital Signs Date Time Temp Pulse Resp B/P (MAP) Pulse Ox O2 Delivery O2 Flow Rate FiO2 02/24/20 14:00 98.0 98 19 143/78 (99) 96 Room Air I&O- Last 24 Hours up to 6 AM 02/24/20 06:00 Intake Total 2400 ml Output Total 3345 ml Balance -945 ml Laboratory Data 24H LABS Laboratory Tests 2 02/23/20 15:37: Anion Gap 7L, Glomerular Filtration Rate > 60.0, Calcium Level 8.5L, Total Creatine Kinase 101, Creatine Kinase MB 2.0, Creatine Kinase MB Relative Index 1.98, Troponin I 0.03# 02/24/20 05:48: Anion Gap 10, Glomerular Filtration Rate > 60.0, Calcium Level 8.8, Immature Granulocyte % (Auto) 0.5, Neutrophils (%) (Auto) 77.7H, Lymphocytes (%) (Auto) 11.8L, Monocytes (%) (Auto) 7.6H, Eosinophils (%) (Auto) 2.1, Basophils (%) (Auto) 0.3, Neutrophils # (Auto) 7.3, Lymphocytes # (Auto) 1.1L, Monocytes # (Auto) 0.7, Eosinophils # (Auto) 0.2, Basophils # (Auto) 0.0, Nucleated Red Blood Cells % (auto) 0.0, Magnesium Level 2.1, Digoxin Level 1.0 CBC/BMP Laboratory Tests 02/23/20 15:37 02/24/20 05:48 Microbiology Microbiology 02/22/20 Blood Culture - Preliminary, Resulted No growth after 24 hours . All specim... 02/22/20 Respiratory Virus Panel (PCR) (TONG) - Final, Complete 02/22/20 Blood Culture - Preliminary, Resulted No Growth after 48 hours. All Specime... BOLIVAR STEVENSON MD February 24, 2020 14:50
--- NOTE | 2020-02-25 06:38 | ECHO ---
DATE OF PROCEDURE: 02/24/2020 DATE OF : 1940 AGE: 80 GENDER: Male. HEIGHT: 5 feet 9 inches WEIGHT: 176 pounds BODY SURFACE AREA: 1.96 meters squared INPATIENT: 4 [place] REFERRING PHYSICIAN: Dr. No Salas INDICATION: Dyspnea. MEASUREMENTS 2-D Measurements: RV: 5.7 cm LV: 4.8 cm Septum: 1.2 cm Posterior wall: 1.2 cm Aortic root: 3.4 cm LA: 4.9 cm LVEF: 70-75% Doppler Measurements: AV: 1.36 m/s LVOT: 0.87 m/s LVOT diameter: 2.0 cm MV - E 117 Early mitral deceleration time: 165 ms E prime medial: 9.3 E prime lateral: 11.6 Average E/E prime ratio: 11.2/PCWP - 15.8 mmHg PV: 0.85 m/s Pulmonary artery acceleration time: 95 ms RVSP: 58-63 mmHg IVC: 2.5 cm COMMENTS: Underlying atrial fibrillation with controlled ventricular response. M-mode and two-dimensional echocardiography was performed with pulsed, continuous wave, color flow and tissue Doppler studies. Borderline concentric left ventricle hypertrophy with hyperkinetic wall motion, but septal wall flattening in keeping with right ventricular pressure overload. Preserved global resting left ventricular systolic function. Moderately dilated left atrium with current estimated mean left atrial pressure upper limits of normal to slightly increased. Prominently dilated right heart chambers with right ventricular free wall hypokinesis and Doppler evidence of moderately severe to severe pulmonary hypertension. Prominently dilated inferior vena cava with absent respiratory collapse in keeping with elevated central venous pressure/right heart failure. Mild aortic valvular sclerosis without stenosis and very mild insufficiency. Normal aortic diameters. Mild mitral annular calcification with normal leaflet excursion, but at least moderate mitral insufficiency. Normal appearing tricuspid valve with moderately severe tricuspid insufficiency. No apparent intracardiac mass or pericardial effusion.
--- NOTE | 2020-02-26 07:17 | IPN ---
DATE OF SERVICE: 02/24/2020 Patient remained orthostatic with some urine retention requiring Arguello catheter placement. He says he wants to go home. He currently is not complaining of any shortness or breath despite IV fluid hydration and with holding his diuretic due to renal failure. No chest pain, pressure or tightness. No lightheadedness, dizziness or near syncope. The patient does have some orthostasis when he first gets up and requires assistance with all types of activities and with ADLs. Denies any hematemesis, bright red blood per rectum, melena, black tarry stools. Patient has received a total of 7 liters of IV fluids during this admission with subsequent hemodilution and anemia with hemoglobin of 7.9. Temperature 98.0, pulse 98, respiratory 19, blood pressure 143/78, 96% on room air. Generally, awake, alert, oriented to himself, person and place. The patient is able to speak in full sentences, no conversational dyspnea. No jugular venous distention (JVD). No thyromegaly. No cervical lymphadenopathy. Moist mucous membranes. Lungs are clear to auscultation. No wheezing, rales or rhonchi. Heart: S1, S2, irregularly irregular. Abdomen is soft, nontender, nondistended. Extremities: No pitting edema. LABORATORY DATA: White count 9.5, hemoglobin 7.9, hematocrit 25.5, platelet count of 222. Sodium 139, potassium 4.2, chloride 104, bicarbonate 25, BUN 22, creatinine 1.05, glucose of 144. Magnesium 2.1. Digoxin level of 1.0. UA with 3+ glucose, trace ketones. Blood culture and respiratory panel negative. COVID-19 negative. IMAGING STUDIES: Chest x-ray 02/23/2020 with no acute cardiopulmonary process. 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 The patient was admitted for digoxin toxicity, given IV fluids and medications of Lasix and spironolactone held until patient's creatinine improved and digoxin level improved. According to the , he has been having worsening orthostasis at home and often will slump over on the chair. She says that sometimes he will stare at her not knowing what she had just said with possible on and off phenomenon due to chronic carbidopa levodopa. ACTIVE ISSUES: 1. Digoxin toxicity with elevated digoxin level in light of renal failure. The patient's potassium has been kept optimized. Renal failure is improved. He has been restarted back on very low dose of digoxin for rate control. The patient is very sensitive with orthostasis due to his Parkinsonian medications and we have attempted not to increase his beta stephanie, it is currently at 5 mg twice a day. Once the renal function has improved, we have also restarted his Lasix to be titrated to 20 mg daily for now. Currently at 10 daily and to be increased to 20 daily and eventually if there are no signs of dehydration to his baseline of 40 daily. Spironolactone has not been restarted because of potassium of 4.2 currently and recent renal failure. 2. Atrial fibrillation. Currently on digoxin and bisoprolol, smaller doses, with digoxin monitoring. Currently level is 1. There is no ventricular arrhythmia noted on telemetry on admission or on EKG, therefore, we have safely resumed it. Patient did not require Digibind as there was no life threatening arrhythmia noted, which has basically held. The patient's digoxin level has improved and renal failure resolved. 3. Acute kidney injury secondary to vomiting and decreased oral intake in the setting of his chronic Lasix and Spironolactone for heart failure. 4. Congestive heart failure and diastolic dysfunction. Patient was dehydrated when he came in to the hospital. We have held his Lasix and Spironolactone with hydration while monitoring for fluid overload. He appears to be euvolemic at this time. Clinically has no pitting edema. Chest x-ray has no congestive heart failure or Mirella B lines or engorged pulmonary vasculature. He is now resumed on low dose Lasix to be titrated to 20 mg daily. Spironolactone is still being held due to potassium of 4.2 currently. 5. Parkinson disease, on chronic carbidopa levodopa with on and off phenomenon. Per the , often times will stare into space and not be coherent and with significant bradycardia and at times he is energetic and moving furniture around. Therefore, due to worsening gait ataxia and orthostasis that has been found during admission, most likely related to his Parkinsonian medication. We have asked neurology to help with adjusting his medication. DISPOSITION: We are awaiting physical therapy clearance and neurology recommendations and titration of medications for Parkinson's prior to hospital discharge. The patient will need home care as outpatient.
== END 2020-02-24 14:34 | disposition home or self-care (01) | DRG 918 ==
LOC: M ED 11:02 → EDBD 11:02 → M ED INP 16:26 → ENRESERV 18:52 → M MSPAV 19:42
PROVIDERS: ADMIT General Practice; ATTEND General Practice
DX: T46.0X1A Poisoning by cardiac-stimulant glycosides and drugs of similar action, accidental (unintentional), initial encounter (principal); N17.9 Acute kidney failure, unspecified; I50.32 Chronic diastolic (congestive) heart failure; R11.2 Nausea with vomiting, unspecified; G20 Parkinson's disease; R26.0 Ataxic gait; I48.91 Unspecified atrial fibrillation; Z79.01 Long term (current) use of anticoagulants; I27.20 Pulmonary hypertension, unspecified; E11.9 Type 2 diabetes mellitus without complications; Z87.891 Personal history of nicotine dependence; Z86.73 Personal history of transient ischemic attack (TIA), and cerebral infarction without residual deficits; E66.01 Morbid (severe) obesity due to excess calories; E78.5 Hyperlipidemia, unspecified; I11.0 Hypertensive heart disease with heart failure; Z91.040 Latex allergy status; Z22.2 Carrier of diphtheria; Z91.018 Allergy to other foods; Z79.899 Other long term (current) drug therapy; K57.30 Diverticulosis of large intestine without perforation or abscess without bleeding; K80.20 Calculus of gallbladder without cholecystitis without obstruction; J43.9 Emphysema, unspecified; R33.9 Retention of urine, unspecified; D64.9 Anemia, unspecified

== ENCOUNTER 2020-02-26 11:36 | Inpatient (IN) | payer MEDICARE ==
[2020-02-26] VITALS (8 sets, daily range): BP systolic 115–156; BP diastolic 56–77
[~2020-02-26] VITALS: Ht 175.3 cm; Wt 84.5 kg
[~2020-02-26 11:36] MED LIST changes: +AMAN100T PO; +ASCO500T PO; +ATOR40TA75 PO; +BISO5TAB14 PO; +DIGO0.123 PO; +DIGO0.253 PO; +FURO20TA2 PO; +JARD1TAB PO; +LISI2.5T2 PO; +METF-838 PO; +METF-839 PO; +METF500T13 PO; +NITR0.4S14 SL; +OMEG12003 PO; +QUET1TAB7 PO; +QUET5TAB PO; +SPIR-10 PO; +VITA-157 PO
[2020-02-26 12:24] LABS: BASO % 0.3 % (0.0-1.0); EOS # 0.2 10^3/uL (0.0-0.5); HEMOGLOBIN 7.3 g/dl (13.5-17.5); LYMPH # 0.9 10^3/uL (1.5-5.0); LYMPH % 8.5 % (24.0-44.0); MEAN CORPUSCULAR HEMOGLOBIN 26.6 pg (27.0-33.0); MEAN CORPUSCULAR HGB CONC 30.4 g/dl (32.0-36.5); MEAN CORPUSCULAR VOLUME 87.6 fl (80.0-96.0); MONO # 0.7 10^3/uL (0.0-0.8); MONO % 7.3 % (0.0-5.0); NEUTROPHILS # 8.1 10^3/uL (1.5-8.5); NEUTROPHILS % 81.2 % (36.0-66.0); PLATELET COUNT, AUTOMATED 172 10^3/uL (150-450); RED BLOOD COUNT 2.74 10^6/uL (4.30-6.10)
[2020-02-26] MEDS ORDERED: COMBIVENT RESPIMAT 100-20MCG INHALER 4GM INH ONE (12:30)
[2020-02-26 13:07] LABS: ALBUMIN 3.1 GM/DL (3.2-5.2); ALT/SGPT 19 U/L (12-78); BILIRUBIN,DIRECT 0.2 MG/DL (0.0-0.2); BILIRUBIN,TOTAL 0.8 MG/DL (0.2-1.0); BLOOD UREA NITROGEN 21 MG/DL (7-18); CALCIUM LEVEL 8.6 MG/DL (8.8-10.2); CARBON DIOXIDE LEVEL 25 MEQ/L (21-32); CHLORIDE LEVEL 103 MEQ/L (98-107); CPK CREATINE PHOSPHOKINASE 62 U/L (39-308); CREATININE FOR GFR 0.91 MG/DL (0.70-1.30); GLOMERULAR FILTRATION RATE > 60.0 (>42); GLUCOSE, FASTING 105 MG/DL (70-100); MB/CK RELATIVE INDEX 3.23 (< OR =4); NT-PRO BNP 3169 PG/ML (<450); POTASSIUM SERUM 3.9 MEQ/L (3.5-5.1); SODIUM LEVEL 137 MEQ/L (136-145); THYROID STIMULATING HORMONE 0.539 uIU/ML (0.358-3.740); TOTAL PROTEIN 6.1 GM/DL (6.4-8.2); TROPONIN I 0.03 NG/ML (< 0.10)
[2020-02-26 13:10] LABS: ABG HCO3 23.3 MEQ/L (22.0-26.0); ABG O2 SATURATION 97.1 % (95.0-99.0); ABG PARTIAL PRESSURE CO2 36.5 mmHg (35.0-45.0); ABG PARTIAL PRESSURE O2 97.1 mmHg (75.0-100.0); ABG STANDARD HCO3 23.7 MEQ/L (22.0-26.0); ABG TOTAL CO2 24.4 MEQ/L (23.0-31.0); ABG pH (ARTERIAL) 7.422 UNITS (7.350-7.450)
[2020-02-26] MEDS ORDERED: PANTOPRAZOLE 40MG VIAL (C9113 PER 1) IV ONE (13:30)
[2020-02-26 13:35] LABS: INR 1.68; PARTIAL THROMBOPLASTIN TIME 36.1 SECONDS (25.0-38.4); PROTHROMBIN TIME 19.6 SECONDS (11.8-14.0)
[2020-02-26] MEDS ORDERED: DIGO0.123 PO (13:35)
[2020-02-26] MEDS ORDERED: FURO20TA2 PO (13:35)
--- NOTE | 2020-02-26 13:52 | HPEPDOC ---
[facility] Medical History & Physical Date of Admission February 26, 2020 Date of Service: February 26, 2020 Primary Care Physician: DA MARIANO DO Attending Physician: Judith Vasquez MD History and Physical CHIEF COMPLAINT: Low oxygen saturation HISTORY OF PRESENT ILLNESS: The patient is a 80-year-old male with recent treatment of digoxin toxicity (d/c'ed from [facility] on 02/24/20), chronic atrial fibrillation on Eliquis and digoxin, chronic diastolic heart failure, mild pulmonary hypertension on echo in 2014, 20 pack year history of smoking with a diagnosis of 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 Patient states that since his return home he has developed worsening shortness of breath, lightheadedness and dizziness. He states that today he had substernal chest pain, nonradiating, 4/10 on pain scale. Pain improved with rest and without movement. Patient denies cough, decreased appetite, bowel or bladder issues, fevers, chills, n/v/d, rashes, vision changes, lethargy, bleeding. Patient had home nurse check VS and his O2 sat was 79. He then came to ER for further evaluation. In ER, VS showed temp 97.3, pulse 90, blood pressure 119/59, respiratory rate 22, 92% on room air. ROS neg as mentioned below. CXR showed possible small right pleural effusion. BNP 3169, troponin negative. ECG showed atrial fib with chronic changes, similar to last ECG on file. H&H was low at 7.3/24. On 02/24/20, patient's H/H was 7.9/24. Occult blood positive but no obvious bleeding seen. Digoxin level 1.0. INR/PT wnl. Blood consent was obtained. Due to patient's complicated history of clots, being high risk of clot formation on xarelto, patient was admitted for further workup and treatment of GI bleed requiring transfusion, possibly requiring scope and IVC filter placement. REVIEW OF SYSTEMS: CONSTITUTIONAL: Denies lack of energy, unexplained weight gain or weight loss, loss of appetite, fever, night sweats EYES: Denies eye drainage, eye pain, visual changes, dry/irritated eye EARS, NOSE, MOUTH, THROAT: Denies difficulty hearing, ringing in ears, mouth sores, loose teeth, sore throat, facial numbness or pain NECK: Denies swollen glands CARDIOVASCULAR: Denies racing heart, swelling of feet or legs, pain in legs with walking RESPIRATORY: Denies night sweats, wheezing, sputum production, oxygen at home, coughing up blood, cough lasting > 1 month GASTROINTESTINAL: Denies abdominal pain, constipation, diarrhea, heartburn, nausea, vomiting GENITOURINARY: Denies painful urination, bloody urine, frequent urination, urgency, leaking urine, impotence MUSCULOSKELETAL: Denies joint pain, muscle pain, leg swelling INTEGUMENTARY: Denies rash, itching, new skin lesion, change in existing skin lesion, hair loss or increase, breast changes. NEUROLOGICAL: Denies headaches, difficulty walking, numbness or tingling PSYCHIATRIC: Denies depression, anxiety, recurrent bad thoughts, mood swings, hallucinations PAST MEDICAL HISTORY: 1. Congestive heart failure, diastolic dysfunction. 2. Atrial fibrillation, on chronic Xarelto. 3. CVA. 4. Hx of multiple DVTs, possible PE (pt unsure) 5. Parkinson's disease 6. Hx of morbid obesity 7. DM type II 8. Melanoma to his neck. 9. Hyperlipidemia. 10. Hypertension. PAST SURGICAL HISTORY: 1. Colonoscopy. 2. Tonsillectomy. 3. Melanoma resection on the neck. ALLERGIES: To LATEX (rash); MUSHROOM per the ; AMBIEN, causing a rash. SOCIAL HISTORY: Patient currently is a FULL CODE with chest compression, cardiopulmonary resuscitation (CPR), trial of intubation. Healthcare proxy is the patient's wif Maite farrell (cell phone number is [phone], home number [phone]). Patient previously smoked a pack per day for 20 years with a 20 pack-year history of smoking, quit in 1979. No alcohol or drug use. Patient has an occasional alcoholic beverage, a beer with his , which he splits, once in a blue ortiz. He lives at home with his spouse and cat in [place]. 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 FAMILY HISTORY: Father age 62 of coronary artery disease (CAD), myocardial infarction (HI). Mother age 96 of old age. Patient has two siblings with type 2 diabetes. ALLERGIES: Please see below. HOME MEDICATIONS: Please see below. PHYSICAL EXAMINATION: CONSTITUTIONAL: No acute distress, resting comfortably, AAO x 3 EYES: PERRLA, EOM intact HENT, MOUTH: Normocephalic, atraumatic, moist mucous membranes, NECK: SUPPLE, no JVD, no lymphadenopathy, no carotid bruit CV: irregularly irregular rhythm, rate controlled. S1S2 normal, no murmurs/rubs/gallops RESPIRATORY: Clear to auscultation bilaterally, no rales/rhonchi/wheezes GI: BS positive in 4 quadrants, soft, nontender, nondistended, no rebound or guarding, no organomegaly : Deferred MUSCULOSKELETAL: Normal ROM. No cyanosis, clubbing, swelling, joint deformity. R>L leg swelling-chronic as per patient. +1 pitting edema bilateral lower ext. INTEGUMENTARY: Intact, no rashes, no lesions, no erythema NEUROLOGIC: Cranial Nerves II-XII are intact, no focal deficits PSYCHIATRIC: Mood and affect are normal LABORATORY DATA: Please see below IMAGING: CXR: possible small right pleural effusion. ASSESSMENT: Patient is a 80 y/o M admitted for GI bleed, symptomatic anemia. PLAN: 1. GI bleed on xarelto. Occult blood +, symptomatic anemia (see below). Stopped xarelto but will likely need IVC filter placement due to high risk of clot forma tion, hx of clots. Transfusing 1-2 units PRBC today, f/u post-transfusion H/H. Spoke with surgery, starting on clear liquid diet. Surgery consulted to evaluate for possible scope. 2. Symptomatic anemia. Worsened H/H since recent discharge, occult +. Stopped xarelto, CBC Q6H. Goal >8. C/w plan above. 3. Hx of multiple DVTs, ? PE. High risk of clot formation. IR consulted for IVC filter placement. 4. Shortness of breath likely multifactorial to worsening anemia and CHF exacerbation, pleural effusion. Transfusing today, will need lasix dose between units if more than one. C/w treatment of individual issues below. 5. Acute diastolic CHF exacerbation. BNP elevated >3000, pleural effusion on CXR, +1 pitting edema lower ext. No recent echo on file, will order new. C/w home meds with holding parameters. Cycle troponins. 6. Atrial fibrillation, rate controlled. Holding xarelto, c/w digoxin. On tele. 7. Hx of CVA. C/w home meds except xarelto. 8. Parkinson's disease. Stable. C/w home meds. 9. DM type II. ISS, AC/HS finger sticks, clear liquid diet. REsume consistent carb when taking PO. 10. HLD. C/w home med. 11. DVT px. Stop xarelto, other AC contraindicated. IVC filter placement discussed. Risk of being off AC discussed in great detail with patient and he understands at this time why we cannot continue. DISPOSITION: Admitted under inpatient status. Surgery and IR both consulted as mentioned above. Plan is discharge home when medically improved. Vital Signs Vital Signs Date Time Temp Pulse Resp B/P (MAP) Pulse Ox O2 Delivery O2 Flow Rate FiO2 02/26/20 11:49 97.3 90 22 119/59 (79) 93 Room Air Laboratory Data Labs 24H Laboratory Tests 2 02/26/20 11:53: Immature Granulocyte % (Auto) 0.7, Neutrophils (%) (Auto) 81.2H, Lymphocytes (%) (Auto) 8.5L, Monocytes (%) (Auto) 7.3H, Eosinophils (%) (Auto) 2.0, Basophils (%) (Auto) 0.3, Neutrophils # (Auto) 8.1, Lymphocytes # (Auto) 0.9L, Monocytes # (Auto) 0.7, Eosinophils # (Auto) 0.2, Basophils # (Auto) 0.0, Nucleated Red Blood Cells % (auto) 0.0, Anion Gap 9, Glomerular Filtration Rate > 60.0, Calcium Level 8.6L, Total Bilirubin 0.8, Direct Bilirubin 0.2, Aspartate Amino Transf (AST/SGOT) 21, Alanine Aminotransferase (ALT/SGPT) 19, Alkaline Phosphatase 86, Total Creatine Kinase 62, Creatine Kinase MB 2.0, Creatine Kinase MB Relative Index 3.23, Troponin I 0.03, JH-Ktl-V-Type Natriuretic Peptide 3169H, Total Protein 6.1L, Albumin 3.1L, Albumin/Globulin Ratio 1.03, Thyroid Stimulating Hormone (TSH) 0.539, Digoxin Level 1.0 02/26/20 12:44: Blood Gas Bicarbonate Standard 23.7, Arterial Blood pH 7.422, Arterial Blood Partial Pressure CO2 36.5, Arterial Blood Partial Pressure O2 97.1, Arterial Blood Total CO2 24.4, Arterial Blood HCO3 23.3, Arterial Blood Base Excess -1.0, Arterial Blood Oxygen Saturation 97.1 02/26/20 13:10: Prothrombin Time 19.6H, Prothromb Time International Ratio 1.68, Activated Partial Thromboplast Time 36.1 CBC/BMP Laboratory Tests 02/26/20 11:53 Home Medications Scheduled Amantadine HCl (Amantadine) 100 Mg Tablet, 100 MG PO BID TAKES AM AND NOON Ascorbic Acid (Ascorbic Acid) 500 Mg Tablet, 1,000 MG PO DAILY Atorvastatin Calcium (Atorvastatin Calcium) 40 Mg Tablet, 40 MG PO QHS Bisoprolol Fumarate (Bisoprolol Fumarate) 5 Mg Tablet, 5 MG PO BID TAKES IF HR IS 70 OR ABOVE Carbidopa/Levodopa (Sinemet 25-100 mg Tablet) 1 Tab Tab, 2 TAB PO QID TAKES AROUND EVERY 4 HOURS WHILE AWAKE Digoxin (Digoxin) 125 Mcg Tablet, 125 MCG PO DAILY Empagliflozin (Jardiance) 10 Mg Tablet, 10 MG PO DAILY Furosemide (Furosemide) 20 Mg Tablet, 20 MG PO DAILY Metformin HCl (Metformin HCl) 500 Mg Tablet, 500 MG PO QAM Metformin HCl (Metformin HCl) 500 Mg Tablet, 1,000 MG PO QPM Multivitamins (Thera M Plus Tablet) 1 Tab Tab, 1 TAB PO DAILY [place]-3/Dha/Epa/Fish Oil (Fish Oil 1,200 mg Softgel) 1 Each Capsule.dr, 1,200 MG PO BID Quetiapine Fumarate (Quetiapine Fumarate) 25 Mg Tablet, 50 MG PO QHS Rasagiline Mesylate (Azilect) 1 Mg Tab, 1 MG PO DAILY Rivaroxaban (Xarelto) 20 Mg Tab, 20 MG PO QHS Ropinirole HCl (Ropinirole HCl) 1 Mg Tab, 1 MG PO QID TAKES WITH SINEMET Vit A/Vit C/Vit E/Zinc/Copper (Preservision Areds Softgel) 1 Cap Cap, 1 CAP PO BID Vitamin E (Dl,Tocopheryl Acet) (Vitamin E) 400 Unit Capsule, 400 UNIT PO DAILY Scheduled PRN Nitroglycerin (Nitroglycerin) 0.4 Mg Tab.subl, 0.4 MG SL NITRO PRN for CHEST PAIN Allergies Coded Allergies: Mushroom (Verified Allergy, Intermediate, HIVES, 08/17/15) latex (Verified Allergy, Unknown, Rash/hives, 02/26/20) zolpidem (Verified Adverse Reaction, Unknown, rash, 02/22/20) A-FIB/CHADSVASC A-FIB History Current/History of A-Fib/PAF?: Yes Current PO Anticoag Therapy: Yes Age/Risk Factor Scoring CHADSVASC: CHADSVASC Response (Comments) Value Age Risk Factor Age >/= 75 years old 2 Gender Risk Factor Male 0 Hx of CHF Yes 1 Hx of HTN Yes 1 Hx of Stroke/TIA/or VTE Yes 2 Hx of Diabetes Yes 1 Hx of Vascular Disease Yes 1 Total 8 Treatment Treatment ordered: NONE Reason Anticoagulant not given: Current bleeding Judith Vasquez MD February 26, 2020 13:52
--- NOTE | 2020-02-26 14:10 | REP ---
REASON FOR EXAM: Dyspnea. COMPARISON: Multiple, the latest 02/23/2020. There is mild right CP angle blunting. The lung cota are otherwise clear and unchanged. The heart is not enlarged. The osseous structures are stable and intact. IMPRESSION: Possible small right pleural effusion . Electronically Signed by Lionel Vargas DO 02/26/2020 03:55 P
[2020-02-26] MEDS ORDERED: NITROGLYCERIN 0.4 MG SUBL TABLET SL PRN (15:45)
[2020-02-26 17:08] LABS: HEMATOCRIT 24.2 % (42.0-52.0); HEMOGLOBIN 7.3 g/dl (13.5-17.5); MEAN CORPUSCULAR HEMOGLOBIN 26.5 pg (27.0-33.0); MEAN CORPUSCULAR HGB CONC 30.2 g/dl (32.0-36.5); PLATELET COUNT, AUTOMATED 194 10^3/uL (150-450); RED BLOOD COUNT 2.75 10^6/uL (4.30-6.10); WHITE BLOOD COUNT 9.3 10^3/uL (4.0-10.0)
[2020-02-26] MEDS: rOPINIRole 1MG TAB PO SCH ×2 (17:32→20:47)
[2020-02-26] MEDS: SINEMET 25-100 MG TAB PO SCH ×2 (17:32→20:46)
--- NOTE | 2020-02-26 20:26 | ECGEPIP ---
[facility] - ED Test Date: 2020-02-26 Pat Name: KARLA ALVAREZ Department: Room: - Gender: Male Rn Care Transition: lyn : 1940 Requested By: Dalton Olguin Order Number: [id number] Reading MD: Vita Beal Measurements Intervals [place] Rate: 74 P: MT: 0 QRS: -14 QRSD: 90 T: -5 QT: 347 QTc: 387 Interpretive Statements ATRIAL FIBRILLATION ST DEVIATION AND MODERATE T-WAVE ABNORMALITY, CONSIDER ANTERIOR ISCHEMIA Incomplete right bundle branch block SIMILAR 02/23/20 Electronically Signed on 02-26-2020 20:26:38 EDT by Vita Beal
[2020-02-26] MEDS: PANTOPRAZOLE 40MG VIAL (C9113 PER 1) IV SCH (20:45)
[2020-02-26] MEDS: ATORVASTATIN 20 MG TAB PO SCH (20:46)
[2020-02-26] MEDS: bisoproloL fumarate 5 MG TAB PO SCH (20:46)
[2020-02-26] MEDS: OCUVITE 1 TAB PO SCH (20:47)
[2020-02-26] MEDS: QUEtiapine FUMARATE 25 MG TAB PO SCH (20:47)
[2020-02-26 22:53] LABS: HEMATOCRIT 23.8 % (42.0-52.0); HEMOGLOBIN 7.3 g/dl (13.5-17.5); MEAN CORPUSCULAR HEMOGLOBIN 26.5 pg (27.0-33.0); MEAN CORPUSCULAR HGB CONC 30.7 g/dl (32.0-36.5); MEAN CORPUSCULAR VOLUME 86.5 fl (80.0-96.0); PLATELET COUNT, AUTOMATED 177 10^3/uL (150-450); RED BLOOD COUNT 2.75 10^6/uL (4.30-6.10); WHITE BLOOD COUNT 8.6 10^3/uL (4.0-10.0)
[2020-02-26] MEDS ORDERED: FUROSEMIDE 40MG/4ML VIAL (J1940) IV ONE (23:30)
[2020-02-27] VITALS (15 sets, daily range): BP systolic 106–149; BP diastolic 56–85
[2020-02-27] MEDS ORDERED: UNRESOLVED CLARIFICATION ENTRY XX SCH (00:01)
[2020-02-27 06:23] LABS: HEMATOCRIT 27.6 % (42.0-52.0); HEMOGLOBIN 8.6 g/dl (13.5-17.5); MEAN CORPUSCULAR HGB CONC 31.2 g/dl (32.0-36.5); MEAN CORPUSCULAR VOLUME 86.8 fl (80.0-96.0); PLATELET COUNT, AUTOMATED 198 10^3/uL (150-450); RED BLOOD COUNT 3.18 10^6/uL (4.30-6.10); WHITE BLOOD COUNT 8.5 10^3/uL (4.0-10.0)
--- NOTE | 2020-02-27 06:37 | CR ---
DATE OF CONSULTATION: 02/26/2020 REASON FOR CONSULTATION: Anemia. HISTORY OF PRESENT ILLNESS: The patient is a pleasant 80-year-old man who was admitted on 02/26/2020 by the hospitalist team. The patient had been admitted on 02/22/2020 with a complaint of some nausea and vomiting. He has a history of some atrial fibrillation on Xarelto with congestive heart failure and has some chronic lung disease. During that hospital stay, it was noted that his digoxin level was somewhat elevated and he showed an elevation of his creatinine suggestive of acute kidney injury. His medications were adjusted. He received some hydration. His symptoms resolved and he was started back on a diet. He was discharged home on 02/24/2020. During that hospital stay, he was noted to be anemic with a hemoglobin of approximately 7 to 8. The patient noted that after he was discharged home on the he had no further nausea or vomiting. He reported that his lightheadedness seemed to have resolved. On the morning of the , apparently a visiting nurse came to check on him and he was found to have a decreased oxygen saturation. He denied any cough or sputum production. He had noticed some mild shortness of breath and some mild chest pressure. He has not noticed any evidence of melena or hematochezia. He returned to the emergency department and was admitted. His hemoglobin and hematocrit are marginally lower than they had been at the time of his prior discharge. Because of this, I was consulted to evaluate the patient regarding possible gastrointestinal (GI) bleed. MEDICATIONS: The patient's medications at the time of admission include - amantadine 100 mg by mouth twice daily - ascorbic acid 500 mg by mouth daily - atorvastatin 40 mg nightly at bedtime - bisoprolol 5 mg by mouth twice daily if his heart rate is 70 or over - carbidopa levodopa 2 tablets four times daily - digoxin 0.125 mg by mouth daily - [id number] mg by mouth daily - Lasix 20 mg by mouth daily - metformin 500 mg by mouth every morning and 1 gram by mouth every evening - multivitamin - nitroglycerin as needed - omega 3 fish oil capsules - quetiapine 50 mg by mouth at bedtime - Azilect 1 mg by mouth daily - Xarelto 20 mg by mouth at bedtime - ropinirole 1 mg by mouth four times a day - PreserVision soft gel twice daily - vitamin E daily ALLERGIES: - MUSHROOMS - LATEX - ZOLPIDEM SURGICAL HISTORY: Significant for a colonoscopy back in 2016. He has had his tonsils out. MEDICAL HISTORY: Significant for atrial fibrillation on chronic anticoagulation, congestive heart failure, history of prior cerebrovascular accident, history of a deep vein thrombosis greater than 30 years ago, Parkinson's disease, prior morbid obesity now resolved, diabetes mellitus type 2, a previous melanoma excised from his neck, hyperlipidemia, hypertension, chronic obstructive pulmonary disease, and sleep apnea. 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 He is a former smoker, but quit many years ago. He denies any significant alcohol intake. FAMILY HISTORY: Significant for coronary artery disease in his father. REVIEW OF SYSTEMS: Reveals no history of cough or sputum production. He has had no severe chest pain. He denies any history of pulmonary embolus. He has had no obvious rectal bleeding or hematuria. He denies dysuria. He reports regular bowel movements that maybe as infrequent as every third day. He has no history of peptic ulcer disease, hepatitis or pancreatitis. He has had no recent acute neurologic symptoms. PHYSICAL EXAMINATION: Reveals an elderly man lying quietly propped up in the bed having just completed a clear liquid meal. He is alert and oriented. He admits that he does not remember all the details of his medications or his medical history, but seems to have a pretty good understanding of the problems he has faced, if not the exact timeline. Skin is warm and dry. Sclerae are anicteric. Mucous membranes are moist. Neck is supple. Heart exam shows a regular rhythm. The lungs show some slightly distant breath sounds, but no wheezes or rhonchi. The abdomen is nondistended. He has bowel sounds present. The abdomen is soft throughout without appreciable mass. There is no significant tenderness identified. Extremities are without edema and he has palpable radial and dorsalis pedis pulses bilaterally. LABORATORY STUDIES: Today show a white count of 10, hemoglobin of 7, hematocrit 24 and a platelet count of 172,000. Differential count shows 81% neutrophils, 8% lymphocytes and 7% monocytes. Chemistry profile shows normal electrolytes with a BUN of 21, creatinine 0.9 and glucose of 105. Liver function tests are entirely normal. Total protein is 6.1 with an albumin of 3.1. A BNP is 3169 and a TSH is 0.5. Troponin is 0.03. He had a blood gas that was unremarkable. Digoxin is 1.0. PT was 19.6 with an INR of 1.68 and a PTT of 36. He had a chest x-ray obtained in the emergency department which was interpreted as showing a possible small right pleural effusion, but otherwise clear lung cota and a heart that was not enlarged. IMPRESSION: 1. Anemia. 2. History of congestive heart failure. 3. Atrial fibrillation on anticoagulation. 4. Chronic obstructive pulmonary disease (COPD). 5. Sleep apnea. 6. Hypertension. 7. Hyperlipidemia. 8. Diabetes mellitus type 2. 9. Parkinson disease. 10. Distant history of lower extremity deep vein thrombosis. RECOMMENDATIONS The patient has no signs recently of acute gastrointestinal bleeding. He has had no melena or hematochezia. He denies any abdominal pain. His hemoglobin and hematocrit are not markedly changed from what they were during his recent hospital stay from the through the 23 of February. Interestingly, his most recent labs before his recent admission were from August 2019 and at that time he had a hematocrit of 47%. He last had a colonoscopy in 2015 and at that time he was reported to have some small hemorrhoids as well as some diverticulosis in his descending and sigmoid colon and a small adenoma was resected from his distal transverse colon. I think it would be reasonable for the patient to undergo an upper endoscopy during this hospital stay. I suspect that this will be unrevealing. If this is the case, then a repeat outpatient colonoscopy in the near future would be prudent to rule out any sort of underlying colonic polyp or cancer. It may well be that we will not identify a source for bleeding. I discussed this all with the patient and he is agreeable with an upper endoscopy and I will add this onto the schedule for February 26. This will likely occur in the early afternoon.
[2020-02-27 06:54] LABS: BLOOD UREA NITROGEN 17 MG/DL (7-18); CREATININE FOR GFR 0.93 MG/DL (0.70-1.30); GLUCOSE, FASTING 112 MG/DL (70-100)
[2020-02-27 06:55] LABS: ALBUMIN 3.3 GM/DL (3.2-5.2); ALT/SGPT 12 U/L (12-78); CALCIUM LEVEL 8.5 MG/DL (8.8-10.2); CARBON DIOXIDE LEVEL 27 MEQ/L (21-32); CHLORIDE LEVEL 104 MEQ/L (98-107); GLOMERULAR FILTRATION RATE > 60.0 (>42); NT-PRO BNP 2828 PG/ML (<450); POTASSIUM SERUM 3.6 MEQ/L (3.5-5.1); SODIUM LEVEL 140 MEQ/L (136-145); TOTAL PROTEIN 6.3 GM/DL (6.4-8.2)
[2020-02-27] MEDS: PANTOPRAZOLE 40MG VIAL (C9113 PER 1) IV SCH ×2 (09:20→21:17)
[2020-02-27] MEDS: bisoproloL fumarate 5 MG TAB PO SCH ×2 (09:21→21:16)
[2020-02-27] MEDS: SINEMET 25-100 MG TAB PO SCH ×4 (09:21→21:16)
[2020-02-27] MEDS: FUROSEMIDE 20 MG TAB PO SCH (09:21)
[2020-02-27] MEDS: MULTIVITAMINS/MINERALS THERAP 1 TAB PO SCH (09:22)
[2020-02-27] MEDS: AMANTADINE 100MG TABLET PO SCH ×2 (09:22→14:50)
[2020-02-27] MEDS: OCUVITE 1 TAB PO SCH ×2 (09:22→21:14)
[2020-02-27] MEDS: DIGOXIN 0.125 MG TAB PO SCH (09:22)
[2020-02-27] MEDS: rOPINIRole 1MG TAB PO SCH ×4 (09:26→21:17)
[2020-02-27] MEDS ORDERED: LIDOCAINE 2% MDV 20ML VIAL As Ordered ONE (12:07)
[2020-02-27] MEDS ORDERED: propofoL 500 MG/50 ML VIAL As Ordered ONE (12:07)
--- NOTE | 2020-02-27 14:04 | ROOR ---
Patient Name: Yves Hoang Procedure Date: 02/27/2020 1:33 PM Date of : 1940 Age: 80 Room: [facility] Gender: Male Note Status: Finalized Procedure: Upper GI endoscopy Indications: Suspected upper gastrointestinal bleeding Providers: Kye Lebron MD Referring MD: Hortencia MARIANO DO Requesting Provider: Medicines: Monitored Anesthesia Care Complications: No immediate complications. Procedure: Pre-Anesthesia Assessment: - Prior to the procedure, a History and Physical was performed, and patient medications and allergies were reviewed. The patient is competent. The risks and benefits of the procedure and the sedation options and risks were discussed with the patient. All questions were answered and informed consent was obtained. Patient identification and proposed procedure were verified by the physician, the nurse and the distance learning coordinator in the procedure room. Mental Status Examination: alert and oriented. Airway Examination: normal oropharyngeal airway and neck mobility. Prophylactic Antibiotics: The patient does not require prophylactic antibiotics. Prior Anticoagulants: The patient has taken no previous anticoagulant or antiplatelet agents. ASA Grade Assessment: III - A patient with severe systemic disease. After reviewing the risks and benefits, the patient was deemed in satisfactory condition to undergo the procedure. The anesthesia plan was to use monitored anesthesia care (MAC). Immediately prior to administration of medications, the patient was re-assessed for adequacy to receive sedatives. The heart rate, respiratory rate, oxygen saturations, blood pressure, adequacy of pulmonary ventilation, and response to care were monitored throughout the procedure. The physical status of the patient was re-assessed after the procedure. The Endoscope was introduced through the mouth, and advanced to the second part of duodenum. The upper GI endoscopy was accomplished without difficulty. The patient tolerated the procedure well. Findings: The examined esophagus was normal. The Z-line was regular and was found 43 cm from the incisors. A single, diminutive non-bleeding erosion was found in the prepyloric region of the stomach. There were no stigmata of recent bleeding. The exam of the stomach was otherwise normal. A few erosions without bleeding were found in the duodenal bulb. The second portion of the duodenum was normal. Impression: - Normal esophagus. - Z-line regular, 43 cm from the incisors. - Non-bleeding erosive gastropathy. - Duodenal erosions without bleeding. - Normal second portion of the duodenum. - No specimens collected. Recommendation: - [facility]. - Resume previous diet. - Continue present medications. - Perform a colonoscopy at appointment to be scheduled. Kye Lebron MD Kye Lebron MD 02/27/2020 2:04:21 PM Electronically signed by Kye Lebron MD Number of Addenda: 0 Note Initiated On: 02/27/2020 1:33 PM Estimated Blood Loss: Estimated blood loss: none.
[2020-02-27 14:53] LABS: HEMATOCRIT 27.8 % (42.0-52.0); HEMOGLOBIN 8.6 g/dl (13.5-17.5); MEAN CORPUSCULAR HGB CONC 30.9 g/dl (32.0-36.5); MEAN CORPUSCULAR VOLUME 87.4 fl (80.0-96.0); PLATELET COUNT, AUTOMATED 211 10^3/uL (150-450); RED BLOOD COUNT 3.18 10^6/uL (4.30-6.10); WHITE BLOOD COUNT 8.9 10^3/uL (4.0-10.0)
[2020-02-27] MEDS: RASAGILINE 1 MG PO SCH (14:55)
--- NOTE | 2020-02-27 16:11 | IPNPDOC ---
Date Seen The patient was seen on 02/27/20. Progress Note SUBJECTIVE: EGD showed 1-2 tiny erosions in the duodenum, no significant bleeding. As per surgery, patient will need an outpatient colonoscopy. Cardiology recommends keeping off of anticoagulation for several weeks, continuing with PPI and eventually resuming anticoagulation rather than committing to a device such as watchman device. Plan discussed in detail with both the patient and his . The patient has no new bleeding and was started on diet after EGD. OBJECTIVE: VITAL SIGNS: Please see below PHYSICAL EXAMINATION: CONSTITUTIONAL: No acute distress, resting comfortably, AAO x 3 EYES: PERRLA, EOM intact HENT, MOUTH: Normocephalic, atraumatic, moist mucous membranes, NECK: SUPPLE, no JVD, no lymphadenopathy, no carotid bruit CV: irregularly irregular rhythm, rate controlled. S1S2 normal, no murmurs/rubs/gallops RESPIRATORY: Clear to auscultation bilaterally, no rales/rhonchi/wheezes GI: BS positive in 4 quadrants, soft, nontender, nondistended, no rebound or guarding, no organomegaly : Deferred MUSCULOSKELETAL: Normal ROM. No cyanosis, clubbing, swelling, joint deformity. R>L leg swelling-chronic as per patient. +1 pitting edema bilateral lower ext. INTEGUMENTARY: Intact, no rashes, no lesions, no erythema NEUROLOGIC: Cranial Nerves II-XII are intact, no focal deficits PSYCHIATRIC: Mood and affect are normal LABORATORY DATA: Please see below IMAGING: EGD: 12 tiny erosions in duodenum, no significant bleeding. Official report pending ASSESSMENT: Patient is a 80 y/o M admitted for GI bleed, symptomatic anemia. PLAN: 1. GI bleed possibly 2/2 to duodenal erosions? vs. possible lower GI bleed not yet diagnosed. Likely chronic, not acute if any bleed. As per GI, will need colonoscopy as outpatient after discharge. S/p 1 unit PRBC, H/H 8.04/18. EGD above. Continue to hold xarelto for 2 weeks, c/w PPI and will eventually need to be resumed as outpatient. F/u AM CBC. 2. Anemia 2/2 to above. Improved with 1 unit PRBC. F/u CBC, no signs of acute bleeding. Goal >8. C/w plan above. 3. Hx DVT RLE. Previously believed to have had multiple DVTs and possibly PE in past; however, this was not correct information. Only history of one DVT prior t o 1979. No need for IVC filter at this time. 4. Shortness of breath likely multifactorial to worsening anemia and CHF exacerbation, pleural effusion. Symptoms improved, on RA. BNP improved today, -1 .4 L/24 hours. Received 40 mg IV lasix overnight. C/w treatment of individual issues below. 5. Acute diastolic CHF exacerbation. Trop neg, BNP improving, edema improving. Hx of dilated left atrium, normal CVP but no recent echo on file. Discussed case with Dr. Gomez (his compressor assembler) who will see for regular f/u, suggest new echo to be done if not one within last 3 months. C/w home meds with holding parameters. 6. Atrial fibrillation, rate controlled. Holding xarelto for the next several w eeks, c/w digoxin. On tele. 7. Hx of CVA. C/w home meds except xarelto. 8. Parkinson's disease. Stable. C/w home meds. 9. DM type II. ISS, AC/HS finger sticks. C/w consistent carb diet. 10. HLD. C/w home med. 11. DVT px. Stop xarelto, other AC contraindicated. DISPOSITION: Admitted under inpatient status. If no new bleeding events overnight, can discharge in AM with follow up. Will need f/u with PCP, cardiology and outpatient colonoscopy. VS, I&O, 24H, Fishbone Vital Signs/I&O Vital Signs Date Time Temp Pulse Resp B/P (MAP) Pulse Ox O2 Delivery O2 Flow Rate FiO2 02/27/20 13:55 97.8 63 10 113/56 (75) 100 Room Air 02/27/20 06:00 1.0 I&O- Last 24 Hours up to 6 AM 02/27/20 06:00 Intake Total 1480 ml Output Total 2080 ml Balance -600 ml Laboratory Data 24H LABS Laboratory Tests 2 02/26/20 16:35: Nucleated Red Blood Cells % (auto) 0.0, Troponin I < 0.02# 02/26/20 20:21: Coronavirus (COVID-19)(PCR) NEGATIVE 02/26/20 22:43: Nucleated Red Blood Cells % (auto) 0.0, Troponin I 0.03# 02/27/20 05:58: Nucleated Red Blood Cells % (auto) 0.2H, Anion Gap 9, Glomerular Filtration Rate > 60.0, Calcium Level 8.5L, Total Bilirubin 3.0#H, Aspartate Amino Transf (AST/SGOT) 20, Alanine Aminotransferase (ALT/SGPT) 12, Alkaline Phosphatase 90, SB-Kli-M-Type Natriuretic Peptide 2828H, Total Protein 6.3L, Albumin 3.3, Albumin/Globulin Ratio 1.10 02/27/20 14:39: Nucleated Red Blood Cells % (auto) 0.0 CBC/BMP Laboratory Tests 02/26/20 16:35 02/26/20 22:43 02/27/20 05:58 02/27/20 14:39 Current Medications Current Medications Medications (Trade) Dose Ordered Sig/[place] Route PRN Reason Start Time Stop Time Status Last Admin Dose Admin Amantadine HCl (Symmetrel) 100 mg BID@0900,1300 PO 02/27/20 09:00 02/27/20 14:50 Atorvastatin Calcium (Lipitor) 40 mg QHS PO 02/26/20 21:00 02/26/20 20:46 Bisoprolol Fumarate (Zebeta) 5 mg BID PO 02/26/20 21:00 02/27/20 09:21 Carbidopa/Levodopa (Sinemet 25/100) 2 tab QID PO 02/26/20 17:00 02/27/20 14:50 Digoxin (Lanoxin) 0.125 mg DAILY PO 02/27/20 09:00 02/27/20 09:22 Furosemide (Lasix) 20 mg DAILY PO 02/27/20 09:00 02/27/20 09:21 Home Med (Med Rec Complete!) ASDIRECTED XX 02/26/20 13:45 02/26/20 13:37 DC Miscellaneous (Unresolved Clarification Entry) SEE LABEL COMMENTS UNRESOLVED XX 02/27/20 00:01 02/27/20 14:44 DC Multivitamins (Ocuvite(I-Alisson)) 1 tab BID@0800,2000 PO 02/26/20 20:00 02/27/20 09:22 Multivitamins (Theragram-M) 1 tab DAILY@0800 PO 02/27/20 08:00 02/27/20 09:22 Nitroglycerin (Nitrostat (1/ 150)) 0.4 mg Q5MP PRN SL CHEST PAIN 02/26/20 15:45 Pantoprazole Sodium (Protonix) 40 mg BID IV 02/26/20 21:00 02/27/20 09:20 Patient Own Medication (Patient'S Own Med) Rasagiline 1 mg TAB... DAILY PO 02/27/20 09:00 02/27/20 14:55 Quetiapine Fumarate (SEROquel) 50 mg QHS PO 02/26/20 21:00 02/26/20 20:47 Ropinirole HCl (Requip) 1 mg QID PO 02/26/20 17:00 02/27/20 14:50 Allergies Coded Allergies: Mushroom (Verified Allergy, Intermediate, HIVES, 08/17/15) latex (Verified Allergy, Unknown, Rash/hives, 02/26/20) zolpidem (Verified Adverse Reaction, Unknown, rash, 02/22/20) Judith Vasquez MD February 27, 2020 16:11
--- NOTE | 2020-02-27 19:52 | ECHO ---
DATE OF PROCEDURE: 02/26/2020 Date of : 1940 Age: 80 Gender: Male Height: 69 inches Weight: 176 pounds Body surface area: 1.96 meters squared Inpatient: [address] [place] [address], room 4204 REFERRING PHYSICIAN: Dr. Judith Vasquez INDICATION: Chest pain. MEASUREMENTS: 2D Measurements: RV: 5.8 cm LV: 4.3 cm Septum: 1.2 cm Posterior wall: 1.2 cm Aortic root: 3.3 cm LA: 4.9 cm LVEF: 65% Doppler Measurements: AV: 1.35 meters per second LVOT: 0.9 meters per second LVOT diameter: 2.2 cm MV-E: 132 , A: Early mitral deceleration time: 151 milliseconds E prime medial: 9.3, E prime lateral: 12.9 Average E/E prime ratio: 11.9/pulmonary capillary wedge pressure 16.6 mmHg. PV: 0.8 meters per second Pulmonary artery acceleration time: 92 milliseconds RVSP: 55 mmHg IVC: 2.5 cm COMMENTS: Underlying atrial fibrillation with controlled ventricular response. Somewhat challenging study in light of the patient's body habitus but diagnostically useful information was still obtained. M-mode and two-dimensional echocardiography was performed with pulsed, continuous wave, color flow and tissue Doppler studies. Mild concentric left ventricular hypertrophy with preserved systolic function. Prominently dilated left atrium with Doppler evidence of mean left atrial pressure upper limits of normal to mildly increased. Prominently dilated right heart chambers with reduced right ventricular free wall motion and at least moderately severe pulmonary hypertension. Moderately dilated inferior vena cava with absent respiratory collapse consistent with an elevated central venous pressure/right heart failure. Normal aortic diameters. Mild aortic valvular sclerosis without stenosis and only trace insufficiency. Moderate mitral annular calcification and thickening of the mitral leaflets with adequate leaflet excursion and no posterior systolic buckling but moderately severe insufficiency. Normal appearing tricuspid valve with severe insufficiency. No apparent intracardiac mass or pericardial effusion.
[2020-02-27] MEDS: ATORVASTATIN 20 MG TAB PO SCH (21:14)
[2020-02-27] MEDS: QUEtiapine FUMARATE 25 MG TAB PO SCH (21:17)
[2020-02-28 03:30] VITALS: BP 136/57
[2020-02-28 06:08] LABS: HEMATOCRIT 26.3 % (42.0-52.0); HEMOGLOBIN 8.3 g/dl (13.5-17.5); MEAN CORPUSCULAR HEMOGLOBIN 26.9 pg (27.0-33.0); MEAN CORPUSCULAR HGB CONC 31.6 g/dl (32.0-36.5); MEAN CORPUSCULAR VOLUME 85.4 fl (80.0-96.0); PLATELET COUNT, AUTOMATED 202 10^3/uL (150-450); RED BLOOD COUNT 3.08 10^6/uL (4.30-6.10); WHITE BLOOD COUNT 8.3 10^3/uL (4.0-10.0)
[2020-02-28 06:42] LABS: ALT/SGPT 12 U/L (12-78); BILIRUBIN,TOTAL 0.9 MG/DL (0.2-1.0); BLOOD UREA NITROGEN 19 MG/DL (7-18); CALCIUM LEVEL 8.9 MG/DL (8.8-10.2); CARBON DIOXIDE LEVEL 29 MEQ/L (21-32); CHLORIDE LEVEL 103 MEQ/L (98-107); CREATININE FOR GFR 0.94 MG/DL (0.70-1.30); GLOMERULAR FILTRATION RATE > 60.0 (>42); GLUCOSE, FASTING 124 MG/DL (70-100); POTASSIUM SERUM 3.1 MEQ/L (3.5-5.1); SODIUM LEVEL 138 MEQ/L (136-145); TOTAL PROTEIN 6.3 GM/DL (6.4-8.2)
[2020-02-28 07:30] VITALS: BP 138/58
[2020-02-28] MEDS ORDERED: PROT1TAB2 PO (07:59)
[2020-02-28 08:44] VITALS: BP 136/66
[2020-02-28] MEDS: AMANTADINE 100MG TABLET PO SCH (08:44)
[2020-02-28] MEDS: SINEMET 25-100 MG TAB PO SCH (08:44)
[2020-02-28] MEDS: bisoproloL fumarate 5 MG TAB PO SCH (08:44)
[2020-02-28] MEDS: PANTOPRAZOLE 40MG VIAL (C9113 PER 1) IV SCH (08:44)
[2020-02-28] MEDS: RASAGILINE 1 MG PO SCH (08:44)
[2020-02-28] MEDS: MULTIVITAMINS/MINERALS THERAP 1 TAB PO SCH (08:44)
[2020-02-28] MEDS: rOPINIRole 1MG TAB PO SCH (08:44)
[2020-02-28] MEDS: DIGOXIN 0.125 MG TAB PO SCH (08:45)
[2020-02-28] MEDS: FUROSEMIDE 20 MG TAB PO SCH (08:45)
[2020-02-28] MEDS: OCUVITE 1 TAB PO SCH (08:45)
--- NOTE | 2020-02-28 15:35 | DS.PDOC ---
Discharge Summary General Date of Admission February 26, 2020 at 13:48 Date of Discharge 02/28/20 Primary Care Physician: DA MARIANO DO Attending Physician: Judith Vasquez MD Specialist/Consultants Involve: Kye Lebron Discharge Summary HISTORY OF PRESENT ILLNESS: The patient is a 80-year-old male with recent treatment of digoxin toxicity (d/c'ed from [facility] on 02/24/20), chronic atrial fibrillation on Eliquis and digoxin, chronic diastolic heart failure, mild pulmonary hypertension on echo in 2014, 20 pack year history of smoking with a diagnosis of chronic obstructive pulmonary disease (COPD) or emphysema, hx of multiple DVTs, hypertension, diet-controlled diabetes, Parkinson disease who presented to [facility]. Patient states that since his return home he has developed worsening shortness of breath, lightheadedness and dizziness. He states that today he had substernal chest pain, nonradiating, 4/10 on pain scale. Pain improved with rest and without movement. Patient denies cough, decreased appetite, bowel or bladder issues, fevers, chills, n/v/d, rashes, vision changes, lethargy, bleeding. Patient had home nurse check VS and his O2 sat was 79. He then came to ER for further evaluation. In ER, VS showed temp 97.3, pulse 90, blood pressure 119/59, respiratory rate 22, 92% on room air. ROS neg as mentioned below. CXR showed possible small right pleural effusion. BNP 3169, troponin negative. ECG showed atrial fib with chronic changes, similar to last ECG on file. H&H was low at 7.3/24. On 02/24/20, patient's H/H was 7.9/24. Occult blood positive but no obvious bleeding seen. Digoxin level 1.0. INR/PT wnl. Blood consent was obtained. Due to patient's complicated history of clots, being high risk of clot formation on xarelto, patient was admitted for further workup and treatment of GI bleed requiring transfusion, possibly requiring scope and IVC filter placement. HOSPITAL COURSE: Patient had no additional bleeding and responded well to 1 unit PRBC transfusion. VS remained stable. EGD was done by surgery and showed single nonbleeding erosion in prepyloric region of stomach. This is not suspected to be cause of bleeding. As per surgery, patient will need an outpatient colonoscopy. Cardiology ( Dr. Gomez) recommends keeping off of anticoagulation for several weeks, continuing with PPI and eventually resuming anticoagulation rather than committing to a device such as watchman device. Plan discussed in detail with both the patient and his . The patient has no new bleeding and was started o n diet after EGD, which he tolerated well. On 02/28/20 patient was discharged home in improved condition and denied shortness of breath, n/v/d, chest pain fevers or chills. REVIEW OF SYSTEMS: CONSTITUTIONAL: Denies lack of energy, unexplained weight gain or weight loss, loss of appetite, fever, night sweats EYES: Denies eye drainage, eye pain, visual changes, dry/irritated eye EARS, NOSE, MOUTH, THROAT: Denies difficulty hearing, ringing in ears, mouth sores, loose teeth, sore throat, facial numbness or pain NECK: Denies swollen glands CARDIOVASCULAR: Denies racing heart, swelling of feet or legs, pain in legs with walking RESPIRATORY: Denies night sweats, wheezing, sputum production, oxygen at home, coughing up blood, cough lasting > 1 month GASTROINTESTINAL: Denies abdominal pain, constipation, diarrhea, heartburn, nausea, vomiting GENITOURINARY: Denies painful urination, bloody urine, frequent urination, urgency, leaking urine, impotence MUSCULOSKELETAL: Denies joint pain, muscle pain, leg swelling INTEGUMENTARY: Denies rash, itching, new skin lesion, change in existing skin l esion, hair loss or increase, breast changes. NEUROLOGICAL: Denies headaches, difficulty walking, numbness or tingling PSYCHIATRIC: Denies depression, anxiety, recurrent bad thoughts, mood swings, garnett llucinations PAST MEDICAL HISTORY: 1. Congestive heart failure, diastolic dysfunction. 2. Atrial fibrillation, on chronic Xarelto. 3. CVA. 4. Hx of multiple DVTs, possible PE (pt unsure) 5. Parkinson's disease 6. Hx of morbid obesity 7. DM type II 8. Melanoma to his neck. 9. Hyperlipidemia. 10. Hypertension. PAST SURGICAL HISTORY: 1. Colonoscopy. 2. Tonsillectomy. 3. Melanoma resection on the neck. ALLERGIES: To LATEX (rash); MUSHROOM per the ; AMBIEN, causing a rash. SOCIAL HISTORY: Patient currently is a FULL CODE with chest compression, cardiopulmonary resuscitation (CPR), trial of intubation. Healthcare proxy is the patient's , Maite Hoang (cell phone number is [phone], home number [phone]). Patient previously smoked a pack per day for 20 years with a 20 pack-year history of smoking, quit in 1979. No alcohol or drug use. Patient has an occasional alcoholic beverage, a beer with his , which he splits, once in a blue ortiz. He lives at home with his spouse and cta in [place]. 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 FAMILY HISTORY: Father age 62 of coronary artery disease (CAD), myocar dial infarction ([place]). Mother age 96 of old age. Patient has two siblings with type 2 diabetes. ALLERGIES: Please see below. DISCHARGE MEDICATIONS: Please see below. PHYSICAL EXAMINATION: VITAL SIGNS: please see below CONSTITUTIONAL: No acute distress, resting comfortably, AAO x 3 EYES: PERRLA, EOM intact HENT, MOUTH: Normocephalic, atraumatic, moist mucous membranes, NECK: SUPPLE, no JVD, no lymphadenopathy, no carotid bruit CV: irregularly irregular rhythm, rate controlled. S1S2 normal, no murmurs/rubs/gallops RESPIRATORY: Clear to auscultation bilaterally, no rales/rhonchi/wheezes GI: BS positive in 4 quadrants, soft, nontender, nondistended, no rebound or guarding, no organomegaly : Deferred MUSCULOSKELETAL: Normal ROM. No cyanosis, clubbing, swelling, joint deformity. R>L leg swelling-chronic as per patient. +1 pitting edema bilateral lower ext. INTEGUMENTARY: Intact, no rashes, no lesions, no erythema NEUROLOGIC: Cranial Nerves II-XII are intact, no focal deficits PSYCHIATRIC: Mood and affect are normal LABORATORY DATA: Please see below IMAGING: EGD:- Normal esophagus, Z-line regular, 43 cm from the incisors, Non-bleeding erosive gastropathy, Duodenal erosions without bleeding, Normal second portion of the duodenum, No specimens collected. CXR: Possible small right pleural effusion . ASSESSMENT: Patient is a 80 y/o M admitted for GI bleed, symptomatic anemia. PLAN: 1. GI bleed. Possible lower GI bleed and chronic. EGD showed only nonbleeding erosion in prepyloric region. No acute bleeding suspected and patient HD stable, H/H stable. As per GI, will need colonoscopy as outpatient after discharge. Continue to hold xarelto for 2 weeks, c/w PPI and xarelto will eventually need to be resumed as outpatient. To f/u with PCP and cardiology within 1-2 weeks. 2. Anemia 2/2 to above. Improved with 1 unit PRBC. F/u CBC as outpatient. 3. Erosive gastropathy likely 2/2 to GERD. Started on PPI, h. pylori should be checked as outpatient. 4. Shortness of breath likely multifactorial to worsening anemia and CHF exacerbation, pleural effusion. Resolved. 5. Acute diastolic CHF exacerbation. Trop neg, BNP improving, edema improving. Hx of dilated left atrium, normal CVP but no recent echo on file. Discussed case with Dr. Gmoez (his crm business analyst) who will see for regular f/u. C/w home meds with holding parameters. 6. Atrial fibrillation, rate controlled. Holding xarelto for the next several weeks, c/w digoxin. On tele. 7. Hx of CVA. C/w home meds except xarelto. 8. Parkinson's disease. Stable. C/w home meds. 9. DM type II. ISS, AC/HS finger sticks. C/w consistent carb diet. 10. HLD. C/w home med. DISPOSITION: Discharging home in improved condition. Will need f/u with PCP and cardiology. TIME SPENT ON DISCHARGE: 35 MINUTES Vital Signs/I&Os Vital Signs Date Time Temp Pulse Resp B/P (MAP) Pulse Ox O2 Delivery O2 Flow Rate FiO2 02/28/20 08:45 89 02/28/20 08:44 136/66 02/28/20 07:30 97.9 19 98 Room Air 02/27/20 06:00 1.0 I&O- Last 24 Hours up to 6 AM 02/28/20 06:00 Intake Total 450 ml Output Total 430 ml Balance 20 ml Laboratory Data Labs 24H Laboratory Tests 2 02/28/20 05:54: Nucleated Red Blood Cells % (auto) 0.0, Anion Gap 6L, Glomerular Filtration Rate > 60.0, Calcium Level 8.9, Total Bilirubin 0.9#, Aspartate Amino Transf (AST/ SGOT) 19, Alanine Aminotransferase (ALT/SGPT) 12, Alkaline Phosphatase 85, Total Protein 6.3L, Albumin 3.0L, Albumin/Globulin Ratio 0.91L CBC/BMP Laboratory Tests 02/28/20 05:54 Discharge Medications Scheduled Amantadine HCl (Amantadine) 100 Mg Tablet, 100 MG PO BID, (Reported) TAKES AM AND NOON Ascorbic Acid (Ascorbic Acid) 500 Mg Tablet, 1,000 MG PO DAILY, (Reported) Atorvastatin Calcium (Atorvastatin Calcium) 40 Mg Tablet, 40 MG PO QHS, (Reported) Bisoprolol Fumarate (Bisoprolol Fumarate) 5 Mg Tablet, 5 MG PO BID, (Reported) TAKES IF HR IS 70 OR ABOVE Carbidopa/Levodopa (Sinemet 25-100 mg Tablet) 1 Tab Tab, 2 TAB PO QID, (Reported) TAKES AROUND EVERY 4 HOURS WHILE AWAKE Digoxin (Digoxin) 125 Mcg Tablet, 125 MCG PO DAILY, (Reported) Empagliflozin (Jardiance) 10 Mg Tablet, 10 MG PO DAILY, (Reported) Furosemide (Furosemide) 20 Mg Tablet, 20 MG PO DAILY, (Reported) Metformin HCl (Metformin HCl) 500 Mg Tablet, 500 MG PO QAM, (Reported) Metformin HCl (Metformin HCl) 500 Mg Tablet, 1,000 MG PO QPM, (Reported) Multivitamins (Thera M Plus Tablet) 1 Tab Tab, 1 TAB PO DAILY, (Reported) [place]-3/Dha/Epa/Fish Oil (Fish Oil 1,200 mg Softgel) 1 Each Capsule.dr, 1,200 MG PO BID, (Reported) Pantoprazole Sodium (Protonix) 40 Mg Tablet.dr, 40 MG PO DAILY Quetiapine Fumarate (Quetiapine Fumarate) 25 Mg Tablet, 50 MG PO QHS, (Reported) Rasagiline Mesylate (Azilect) 1 Mg Tab, 1 MG PO DAILY, (Reported) Ropinirole HCl (Ropinirole HCl) 1 Mg Tab, 1 MG PO QID, (Reported) TAKES WITH SINEMET Vit A/Vit C/Vit E/Zinc/Copper (Preservision Areds Softgel) 1 Cap Cap, 1 CAP PO BID, (Reported) Vitamin E (Dl,Tocopheryl Acet) (Vitamin E) 400 Unit Capsule, 400 UNIT PO DAILY, (Reported) Scheduled PRN Nitroglycerin (Nitroglycerin) 0.4 Mg Tab.subl, 0.4 MG SL NITRO PRN for CHEST PAIN, (Reported) Allergies Coded Allergies: Mushroom (Verified Allergy, Intermediate, HIVES, 08/17/15) latex (Verified Allergy, Unknown, Rash/hives, 02/26/20) zolpidem (Verified Adverse Reaction, Unknown, rash, 02/22/20) Judith Vasquez MD February 28, 2020 15:35
--- NOTE | 2020-02-28 22:26 | IPN ---
DATE: 02/28/2020 HISTORY: The patient had been admitted by the hospitalists with evidence for anemia and a possible gastrointestinal (GI) bleed. An upper endoscopy yesterday showed some minimally erosions in the prepyloric area and the duodenal bulb. He received two units of packed red blood cells with improvement in his hematocrit to a limited degree. He has not shown any outward evidence of bleeding. He feels comfortable today and has been taking a diet well. Vital Signs: Show that he has been afebrile. His pulse is in the 50s to low 80s and his blood pressure is excellent. Intake and output shows that yesterday he was recorded as having 700 in with 2200 out, with only one bowel movement recorded. PHYSICAL EXAMINATION: The patient is sitting up in a chair looking quite comfortable and alert. Laboratory studies this morning show a white count of 8, hemoglobin 8, hematocrit 26 and a platelet count of 202,000. His chemistry profile shows a sodium of 138, potassium 3.1, chloride 103, CO2 of 29, BUN of 19, creatinine of 0.9 and a glucose of 124. Liver function tests are normal. Total protein is 6.3 with an albumin of 3.0. IMPRESSION: The patient's hematocrit seems to be staying stable. He is not showing any evidence of bleeding with no new bowel movements. He is not having any abdominal pain. RECOMMENDATIONS: I think it would be safe for the patient to be discharged when the medical issues are felt to be stable. I do think he should have a followup colonoscopy as he has not had one any time recently to ensure that there is not some underlying colonic lesion. This can be arranged on an outpatient basis.
== END 2020-02-28 11:17 | disposition home or self-care (01) | DRG 811 ==
LOC: M ED 11:36 → EDBD 11:36 → M ED INP 13:48 → ENRESERV 14:33 → M MSPAV 16:04
PROVIDERS: ADMIT Internal Medicine; ATTEND Internal Medicine
PROC: 30233N1 Transfusion of Nonautologous Red Blood Cells into Peripheral Vein, Percutaneous Approach (ICD-10-PCS; principal; 2020-02-26)
PROC: 0DJ08ZZ Inspection of Upper Intestinal Tract, Via Natural or Artificial Opening Endoscopic (ICD-10-PCS; 2020-02-27)
DX: D64.9 Anemia, unspecified (principal); I50.33 Acute on chronic diastolic (congestive) heart failure; K92.2 Gastrointestinal hemorrhage, unspecified; I48.20 Chronic atrial fibrillation, unspecified; E11.9 Type 2 diabetes mellitus without complications; Z86.73 Personal history of transient ischemic attack (TIA), and cerebral infarction without residual deficits; K21.9 Gastro-esophageal reflux disease without esophagitis; G20 Parkinson's disease; Z79.899 Other long term (current) drug therapy; Z91.040 Latex allergy status; Z91.018 Allergy to other foods; Z88.8 Allergy status to other drugs, medicaments and biological substances; Z79.01 Long term (current) use of anticoagulants; I27.20 Pulmonary hypertension, unspecified; Z86.718 Personal history of other venous thrombosis and embolism; E66.01 Morbid (severe) obesity due to excess calories; E78.5 Hyperlipidemia, unspecified; Z85.820 Personal history of malignant melanoma of skin; J44.9 Chronic obstructive pulmonary disease, unspecified; I11.0 Hypertensive heart disease with heart failure; K57.30 Diverticulosis of large intestine without perforation or abscess without bleeding; K64.8 Other hemorrhoids

== ENCOUNTER → 2020-03-05 | Outpatient (CLI) | payer MEDICARE ==
[~2020-03-05] MED LIST changes: +PROT1TAB2 PO
[2020-03-05 13:43] LABS: BASO # 0.1 10^3/uL (0.0-0.2); BASO % 0.6 % (0.0-1.0); EOS # 0.3 10^3/uL (0.0-0.5); EOS % 2.9 % (0.0-3.0); HEMATOCRIT 30.1 % (42.0-52.0); LYMPH % 11.1 % (24.0-44.0); MEAN CORPUSCULAR HEMOGLOBIN 27.4 pg (27.0-33.0); MEAN CORPUSCULAR HGB CONC 29.9 g/dl (32.0-36.5); MEAN CORPUSCULAR VOLUME 91.5 fl (80.0-96.0); MONO # 0.7 10^3/uL (0.0-0.8); MONO % 7.2 % (0.0-5.0); NEUTROPHILS % 77.4 % (36.0-66.0); PLATELET COUNT, AUTOMATED 202 10^3/uL (150-450); RED BLOOD COUNT 3.29 10^6/uL (4.30-6.10)
[2020-03-05 14:14] LABS: CREATININE, URINE 22.3 MG/DL; MALB URINE SIEMENS 34.1 MG/L; MAU/CREAT RATIO 152.9 MCG/MG (0.0-30.0)
[2020-03-05 14:27] LABS: ALBUMIN 3.4 GM/DL (3.2-5.2); ALT/SGPT 17 U/L (12-78); BILIRUBIN,TOTAL 0.6 MG/DL (0.2-1.0); BLOOD UREA NITROGEN 19 MG/DL (7-18); CALCIUM LEVEL 8.5 MG/DL (8.8-10.2); CARBON DIOXIDE LEVEL 25 MEQ/L (21-32); CHLORIDE LEVEL 104 MEQ/L (98-107); CHOLESTEROL LEVEL 71 MG/DL (<200); CHOLESTEROL RISK RATIO 1.972 (<5); CREATININE FOR GFR 1.09 MG/DL (0.70-1.30); FERRITIN 45 NG/ML (26-388); GLOMERULAR FILTRATION RATE > 60.0 (>42); GLUCOSE, FASTING 132 MG/DL (70-100); HDL CHOLESTEROL 36 MG/DL (>40); IRON (FE) 92 UG/DL (65-175); LDL CHOLESTEROL 22 MG/DL (<100); NON-HDL-C 35 MG/DL; PERCENT SATURATION 27.1 % (19.7-50.0); POTASSIUM SERUM 4.3 MEQ/L (3.5-5.1); SODIUM LEVEL 140 MEQ/L (136-145); THYROID STIMULATING HORMONE 0.828 uIU/ML (0.358-3.740); TOTAL IRON BINDING CAPACITY 340 UG/DL (250-450); TOTAL PROTEIN 6.8 GM/DL (6.4-8.2); TRIGLYCERIDES LEVEL 64 MG/DL (<150); VITAMIN B12 LEVEL 752 PG/ML
[2020-03-06 14:07] LABS: PSA TOTAL 2.3 ng/mL (0.0-4.0)
== END ==
LOC: M PLALAB 10:51
PROVIDERS: ATTEND Family Medicine
DX: I11.0 Hypertensive heart disease with heart failure (principal); E78.5 Hyperlipidemia, unspecified; R35.1 Nocturia; D64.9 Anemia, unspecified

== ENCOUNTER → 2020-03-25 | Outpatient (CLI) | payer MEDICARE ==
[2020-03-25 13:18] LABS: BLOOD UREA NITROGEN 18 MG/DL (7-18); CALCIUM LEVEL 8.9 MG/DL (8.8-10.2); CARBON DIOXIDE LEVEL 29 MEQ/L (21-32); CHLORIDE LEVEL 106 MEQ/L (98-107); CREATININE FOR GFR 1.05 MG/DL (0.70-1.30); GLOMERULAR FILTRATION RATE > 60.0 (>42); GLUCOSE, FASTING 128 MG/DL (70-100); POTASSIUM SERUM 4.5 MEQ/L (3.5-5.1); SODIUM LEVEL 142 MEQ/L (136-145)
== END ==
LOC: M PLALAB 10:14
PROVIDERS: ATTEND Physician Assistant
DX: I50.32 Chronic diastolic (congestive) heart failure (principal)

== ENCOUNTER → 2020-03-30 | Outpatient (CLI) | payer MEDICARE ==
[2020-03-30 14:05] LABS: BASO # 0.1 10^3/uL (0.0-0.2); BASO % 0.7 % (0.0-1.0); EOS # 0.2 10^3/uL (0.0-0.5); EOS % 2.4 % (0.0-3.0); HEMATOCRIT 33.6 % (42.0-52.0); HEMOGLOBIN 9.8 g/dl (13.5-17.5); LYMPH # 1.1 10^3/uL (1.5-5.0); LYMPH % 15.9 % (24.0-44.0); MEAN CORPUSCULAR HGB CONC 29.2 g/dl (32.0-36.5); MEAN CORPUSCULAR VOLUME 89.1 fl (80.0-96.0); MONO # 0.6 10^3/uL (0.0-0.8); MONO % 8.8 % (0.0-5.0); NEUTROPHILS # 5.1 10^3/uL (1.5-8.5); NEUTROPHILS % 71.8 % (36.0-66.0); PLATELET COUNT, AUTOMATED 184 10^3/uL (150-450); RED BLOOD COUNT 3.77 10^6/uL (4.30-6.10)
[2020-03-30 14:17] LABS: ALBUMIN 3.5 GM/DL (3.2-5.2); ALT/SGPT 11 U/L (12-78); BILIRUBIN,TOTAL 0.6 MG/DL (0.2-1.0); BLOOD UREA NITROGEN 24 MG/DL (7-18); CALCIUM LEVEL 8.5 MG/DL (8.8-10.2); CARBON DIOXIDE LEVEL 31 MEQ/L (21-32); CHLORIDE LEVEL 104 MEQ/L (98-107); CREATININE FOR GFR 1.22 MG/DL (0.70-1.30); FREE T4 1.12 NG/DL (0.76-1.46); GLOMERULAR FILTRATION RATE > 60.0 (>42); GLUCOSE, FASTING 115 MG/DL (70-100); SODIUM LEVEL 138 MEQ/L (136-145); THYROID STIMULATING HORMONE 0.965 uIU/ML (0.358-3.740); TOTAL PROTEIN 6.8 GM/DL (6.4-8.2)
[2020-03-30 14:32] LABS: HEMOGLOBIN A1c 5.8 %
== END ==
LOC: M PLALAB 10:28
PROVIDERS: ATTEND Physician Assistant
DX: E78.5 Hyperlipidemia, unspecified (principal); E11.65 Type 2 diabetes mellitus with hyperglycemia; I48.20 Chronic atrial fibrillation, unspecified

== ENCOUNTER → 2020-04-06 | Outpatient (CLI) | payer MEDICARE | LOC: M LABSMTC 09:34 | PROVIDERS: ATTEND Anesthesiology | DX: Z03.818 Encounter for observation for suspected exposure to other biological agents ruled out (principal); Z11.59 Encounter for screening for other viral diseases | CPT/HCPCS: C9803; U0003 ==

== ENCOUNTER 2020-04-09 06:29 | Day surgery (SDC) | payer MEDICARE ==
[~2020-04-09] VITALS: Ht 175.3 cm; Wt 84.4 kg
[2020-04-09] MEDS ORDERED: NS 1,000 ML IV ONE (06:45)
[2020-04-09] MEDS ORDERED: SIMETHICONE 40MG/0.6ML DROPS 30ML As Ordered ONE (07:01)
[2020-04-09] MEDS ORDERED: bisoproloL fumarate 5 MG TAB As Ordered ONE (07:12)
[2020-04-09] MEDS ORDERED: propofoL 200 MG/20 ML VIAL As Ordered ONE ×2 (07:24→07:52)
[2020-04-09] MEDS ORDERED: bisoproloL fumarate 5 MG TAB PO ONE (07:30)
--- NOTE | 2020-04-09 08:57 | ROOR ---
Patient Name: Yves Hoang Procedure Date: 04/09/2020 7:33 AM Date of : 1940 Age: 80 Room: [facility] Gender: Male Note Status: Finalized Procedure: Colonoscopy Indications: Iron deficiency anemia Providers: Kye Lebron MD Referring MD: Hortencia MARIANO DO Requesting Provider: Medicines: Monitored Anesthesia Care Complications: No immediate complications. Procedure: Pre-Anesthesia Assessment: - Prior to the procedure, a History and Physical was performed, and patient medications and allergies were reviewed. The patient is competent. The risks and benefits of the procedure and the sedation options and risks were discussed with the patient. All questions were answered and informed consent was obtained. Patient identification and proposed procedure were verified by the physician, the nurse and the anesthesiologist in the procedure room. Mental Status Examination: alert and oriented. Prophylactic Antibiotics: The patient does not require prophylactic antibiotics. Prior Anticoagulants: The patient has taken no previous anticoagulant or antiplatelet agents. ASA Grade Assessment: III - A patient with severe systemic disease. After reviewing the risks and benefits, the patient was deemed in satisfactory condition to undergo the procedure. The anesthesia plan was to use monitored anesthesia care (MAC). Immediately prior to administration of medications, the patient was re-assessed for adequacy to receive sedatives. The heart rate, respiratory rate, oxygen saturations, blood pressure, adequacy of pulmonary ventilation, and response to care were monitored throughout the procedure. The physical status of the patient was re-assessed after the procedure. The Colonoscope was introduced through the anus and advanced to the cecum, identified by appendiceal orifice and ileocecal valve. The colonoscopy was somewhat difficult due to significant looping. The patient tolerated the procedure well. The quality of the bowel preparation was good. Findings: The perianal and digital rectal examinations were normal. A single medium-sized localized angioectasia without bleeding was found in the cecum. Fulguration to ablate the lesion to prevent bleeding by hot biopsy forceps was successful. To prevent bleeding post-intervention, three hemostatic clips were successfully placed (MR conditional). There was no bleeding at the end of the procedure. A 3 mm polyp was found in the proximal transverse colon. The polyp was sessile. The polyp was removed with a hot snare. Resection and retrieval were complete. Two sessile polyps were found in the transverse colon. The polyps were diminutive in size. Polypectomy was attempted with a hot snare. No tissue was resected. Polyp resection was unsuccessful due to the polypectomy being technically difficult and complex. Multiple medium-mouthed diverticula were found in the sigmoid colon. Impression: - A single non-bleeding colonic angioectasia. Treated with hot biopsy forceps. Clips (MR conditional) were placed. - One 3 mm polyp in the proximal transverse colon, removed with a hot snare. Resected and retrieved. - Two diminutive polyps in the transverse colon. Unsuccessful polyp resection. - Diverticulosis in the sigmoid colon. Recommendation: - Discharge patient to home. - Resume previous diet. - Continue present medications. - Await pathology results. Kye Lebron MD Kye Lebron MD 04/09/2020 8:56:52 AM Electronically signed by Kye Lebron MD Number of Addenda: 0 Note Initiated On: 04/09/2020 7:33 AM Estimated Blood Loss: Estimated blood loss was minimal.
[2020-04-09 09:10] VITALS: BP 138/65
== END 2020-04-09 09:20 | disposition home or self-care (01) ==
LOC: M OPP 06:29
PROVIDERS: ATTEND Surgery
DX: K55.20 Angiodysplasia of colon without hemorrhage (principal); K63.5 Polyp of colon; D50.9 Iron deficiency anemia, unspecified; K57.30 Diverticulosis of large intestine without perforation or abscess without bleeding; G20 Parkinson's disease; E11.9 Type 2 diabetes mellitus without complications; I48.91 Unspecified atrial fibrillation; Z79.84 Long term (current) use of oral hypoglycemic drugs; Z79.899 Other long term (current) drug therapy; Z88.8 Allergy status to other drugs, medicaments and biological substances; Z91.048 Other nonmedicinal substance allergy status; Z91.018 Allergy to other foods; Z87.891 Personal history of nicotine dependence

== ENCOUNTER → 2020-04-13 | Outpatient (CLI) | payer MEDICARE ==
[2020-04-13 12:08] LABS: HEMATOCRIT 36.9 % (42.0-52.0); HEMOGLOBIN 10.8 g/dl (13.5-17.5); MEAN CORPUSCULAR HEMOGLOBIN 26.3 pg (27.0-33.0); MEAN CORPUSCULAR HGB CONC 29.3 g/dl (32.0-36.5); PLATELET COUNT, AUTOMATED 152 10^3/uL (150-450); WHITE BLOOD COUNT 7.8 10^3/uL (4.0-10.0)
[2020-04-13 12:31] LABS: BLOOD UREA NITROGEN 15 MG/DL (7-18); CALCIUM LEVEL 9.4 MG/DL (8.8-10.2); CARBON DIOXIDE LEVEL 30 MEQ/L (21-32); CHLORIDE LEVEL 105 MEQ/L (98-107); CREATININE FOR GFR 1.02 MG/DL (0.70-1.30); GLOMERULAR FILTRATION RATE > 60.0 (>42); GLUCOSE, FASTING 109 MG/DL (70-100); POTASSIUM SERUM 3.8 MEQ/L (3.5-5.1); SODIUM LEVEL 142 MEQ/L (136-145)
== END ==
LOC: M PLALAB 10:08
PROVIDERS: ATTEND Physician Assistant
DX: I48.21 Permanent atrial fibrillation (principal); I11.0 Hypertensive heart disease with heart failure

== ENCOUNTER → 2020-04-27 | Outpatient (CLI) | payer MEDICARE ==
[2020-04-27 17:55] LABS: BASO # 0.1 10^3/uL (0.0-0.2); BASO % 0.5 % (0.0-1.0); EOS # 0.3 10^3/uL (0.0-0.5); EOS % 2.7 % (0.0-3.0); HEMATOCRIT 39.7 % (42.0-52.0); HEMOGLOBIN 11.8 g/dl (13.5-17.5); LYMPH # 1.6 10^3/uL (1.5-5.0); LYMPH % 17.3 % (24.0-44.0); MEAN CORPUSCULAR HEMOGLOBIN 26.9 pg (27.0-33.0); MEAN CORPUSCULAR HGB CONC 29.7 g/dl (32.0-36.5); MEAN CORPUSCULAR VOLUME 90.4 fl (80.0-96.0); MONO # 0.8 10^3/uL (0.0-0.8); MONO % 8.3 % (0.0-5.0); NEUTROPHILS # 6.7 10^3/uL (1.5-8.5); NEUTROPHILS % 70.8 % (36.0-66.0); PLATELET COUNT, AUTOMATED 214 10^3/uL (150-450); RED BLOOD COUNT 4.39 10^6/uL (4.30-6.10); WHITE BLOOD COUNT 9.4 10^3/uL (4.0-10.0)
[2020-04-27 18:03] LABS: ALBUMIN 3.9 GM/DL (3.2-5.2); ALT/SGPT 12 U/L (12-78); BILIRUBIN,TOTAL 1.1 MG/DL (0.2-1.0); BLOOD UREA NITROGEN 26 MG/DL (7-18); CALCIUM LEVEL 9.2 MG/DL (8.8-10.2); CARBON DIOXIDE LEVEL 32 MEQ/L (21-32); CHLORIDE LEVEL 103 MEQ/L (98-107); CREATININE FOR GFR 0.96 MG/DL (0.70-1.30); DIGOXIN LEVEL 0.7 NG/ML (0.5-2.0); GLOMERULAR FILTRATION RATE > 60.0 (>42); GLUCOSE, FASTING 148 MG/DL (70-100); POTASSIUM SERUM 3.7 MEQ/L (3.5-5.1); SODIUM LEVEL 139 MEQ/L (136-145); TOTAL PROTEIN 7.7 GM/DL (6.4-8.2)
== END ==
LOC: M PLALAB 14:58
PROVIDERS: ATTEND Physician Assistant
DX: R23.3 Spontaneous ecchymoses (principal); E11.65 Type 2 diabetes mellitus with hyperglycemia; I48.20 Chronic atrial fibrillation, unspecified

== ENCOUNTER → 2020-08-11 | Outpatient (CLI) | payer MEDICARE ==
[2020-08-11 16:00] LABS: BLOOD UREA NITROGEN 26 MG/DL (7-18); CALCIUM LEVEL 9.3 MG/DL (8.8-10.2); CARBON DIOXIDE LEVEL 32 MEQ/L (21-32); CHLORIDE LEVEL 101 MEQ/L (98-107); GLOMERULAR FILTRATION RATE > 60.0 (>42); GLUCOSE, FASTING 112 MG/DL (70-100); POTASSIUM SERUM 3.8 MEQ/L (3.5-5.1); SODIUM LEVEL 139 MEQ/L (136-145)
== END ==
LOC: M PLALAB 11:38
PROVIDERS: ATTEND Physician Assistant
DX: I50.32 Chronic diastolic (congestive) heart failure (principal)

== ENCOUNTER → 2020-09-08 | Outpatient (CLI) | payer MEDICARE ==
[2020-09-08 13:58] LABS: BASO # 0.1 10^3/uL (0.0-0.2); BASO % 0.5 % (0.0-1.0); EOS # 0.3 10^3/uL (0.0-0.5); EOS % 3.2 % (0.0-3.0); HEMATOCRIT 43.9 % (42.0-52.0); HEMOGLOBIN 13.9 g/dl (13.5-17.5); LYMPH # 1.8 10^3/uL (1.5-5.0); LYMPH % 18.1 % (24.0-44.0); MEAN CORPUSCULAR HEMOGLOBIN 30.3 pg (27.0-33.0); MEAN CORPUSCULAR HGB CONC 31.7 g/dl (32.0-36.5); MEAN CORPUSCULAR VOLUME 95.6 fl (80.0-96.0); MONO # 0.6 10^3/uL (0.0-0.8); MONO % 6.4 % (0.0-5.0); NEUTROPHILS # 6.9 10^3/uL (1.5-8.5); NEUTROPHILS % 71.3 % (36.0-66.0); PLATELET COUNT, AUTOMATED 171 10^3/uL (150-450); RED BLOOD COUNT 4.59 10^6/uL (4.30-6.10); WHITE BLOOD COUNT 9.7 10^3/uL (4.0-10.0)
[2020-09-08 14:08] LABS: ALBUMIN 3.8 GM/DL (3.2-5.2); ALT/SGPT 15 U/L (12-78); BILIRUBIN,TOTAL 0.7 MG/DL (0.2-1.0); BLOOD UREA NITROGEN 19 MG/DL (7-18); CALCIUM LEVEL 9.2 MG/DL (8.8-10.2); CARBON DIOXIDE LEVEL 34 MEQ/L (21-32); CHLORIDE LEVEL 103 MEQ/L (98-107); CHOLESTEROL LEVEL 96 MG/DL (<200); CHOLESTEROL RISK RATIO 1.777 (<5); CREATININE FOR GFR 1.05 MG/DL (0.70-1.30); FREE T4 1.02 NG/DL (0.76-1.46); GLOMERULAR FILTRATION RATE > 60.0 (>42); GLUCOSE, FASTING 106 MG/DL (70-100); HDL CHOLESTEROL 54 MG/DL (>40); LDL CHOLESTEROL 28 MG/DL (<100); NON-HDL-C 42 MG/DL; POTASSIUM SERUM 3.7 MEQ/L (3.5-5.1); SODIUM LEVEL 140 MEQ/L (136-145); TOTAL PROTEIN 7.4 GM/DL (6.4-8.2); TRIGLYCERIDES LEVEL 70 MG/DL (<150)
[2020-09-08 14:42] LABS: HEMOGLOBIN A1c 5.9 %
== END ==
LOC: M PLALAB 11:20
PROVIDERS: ATTEND Family Medicine
DX: E11.65 Type 2 diabetes mellitus with hyperglycemia (principal); E78.5 Hyperlipidemia, unspecified

== ENCOUNTER → 2021-02-15 | Outpatient (REF) | payer MEDICARE ==
[~2021-02-15] MED LIST changes: +CARB-89 PO; -QUET1TAB7 PO; +QUET25TA3 PO; +QUET50TA3 PO; -QUET5TAB PO; -SINE25TA5 PO; -VITA-157 PO; +VITAE40CA PO
== END ==
LOC: M PLALAB 13:54
DX: T46.0X1A Poisoning by cardiac-stimulant glycosides and drugs of similar action, accidental (unintentional), initial encounter (principal)

== ENCOUNTER → 2021-03-29 | Outpatient (CLI) | payer MEDICARE ==
[2021-03-29 13:29] LABS: BASO # 0.1 10^3/uL (0.0-0.2); BASO % 0.7 % (0.0-1.0); EOS # 0.2 10^3/uL (0.0-0.5); EOS % 3.1 % (0.0-3.0); HEMATOCRIT 44.4 % (42.0-52.0); HEMOGLOBIN 14.2 g/dl (13.5-17.5); LYMPH # 1.4 10^3/uL (1.5-5.0); LYMPH % 18.4 % (24.0-44.0); MEAN CORPUSCULAR HEMOGLOBIN 30.7 pg (27.0-33.0); MEAN CORPUSCULAR VOLUME 95.9 fl (80.0-96.0); MONO # 0.6 10^3/uL (0.0-0.8); NEUTROPHILS # 5.3 10^3/uL (1.5-8.5); NEUTROPHILS % 69.4 % (36.0-66.0); PLATELET COUNT, AUTOMATED 140 10^3/uL (150-450); RED BLOOD COUNT 4.63 10^6/uL (4.30-6.10); WHITE BLOOD COUNT 7.7 10^3/uL (4.0-10.0)
[2021-03-29 13:45] LABS: HEMOGLOBIN A1c 5.7 %
[2021-03-29 14:04] LABS: ALBUMIN 3.7 GM/DL (3.2-5.2); ALT/SGPT 10 U/L (12-78); BILIRUBIN,TOTAL 0.9 MG/DL (0.2-1.0); BLOOD UREA NITROGEN 24 MG/DL (7-18); CALCIUM LEVEL 9.4 MG/DL (8.8-10.2); CARBON DIOXIDE LEVEL 32 MEQ/L (21-32); CHLORIDE LEVEL 102 MEQ/L (98-107); CREATININE FOR GFR 1.05 MG/DL (0.70-1.30); GLOMERULAR FILTRATION RATE > 60.0 (>42); GLUCOSE, FASTING 109 MG/DL (70-100); POTASSIUM SERUM 4.2 MEQ/L (3.5-5.1); SODIUM LEVEL 140 MEQ/L (136-145); TOTAL PROTEIN 6.8 GM/DL (6.4-8.2)
[2021-03-29 14:10] LABS: CREATININE, URINE 42.3 MG/DL; MALB URINE SIEMENS 7.1 MG/L; MAU/CREAT RATIO 16.7 MCG/MG (0.0-30.0)
== END ==
LOC: M PLALAB 10:35
PROVIDERS: ATTEND Family Medicine
DX: E11.65 Type 2 diabetes mellitus with hyperglycemia (principal)

== ENCOUNTER → 2021-07-01 | Outpatient (CLI) | payer MEDICARE ==
[~2021-07-01] MED LIST changes: -LISI2.5T2 PO; +LISI2.5T9 PO; +QUET1TAB17 PO; -QUET25TA3 PO; -QUET50TA3 PO; +QUET50TA4 PO
[2021-07-01 13:05] LABS: APPEARANCE, URINE CLEAR (CLEAR); BACTERIA, URINE AUTO NEGATIVE (NEGATIVE); BILIRUBIN, URINE AUTO NEGATIVE (NEGATIVE); BLOOD, URINE BLOOD NEGATIVE (NEGATIVE); COLOR, URINE STRAW (YELLOW); GLUCOSE, URINE (UA) AUTO 3+ mg/dL (NEGATIVE); KETONE, URINE AUTO NEGATIVE (NEGATIVE); LEUKOCYTE ESTERASE, URINE AUTO NEGATIVE (NEGATIVE); NITRITE, URINE AUTO NEGATIVE (NEGATIVE); PROTEIN, URINE AUTO NEGATIVE (NEGATIVE); RBC, URINE AUTO 0 /HPF (0-3); SPECIFIC GRAVITY URINE AUTO 1.011 (1.002-1.035); SQUAMOUS EPITHELIAL CELL UR AU 0 /HPF (0-6); UROBILINOGEN, URINE AUTO 0.2 mg/dL (0.0-2.0); WBC, URINE AUTO 0 /HPF (0-3)
[2021-07-01 13:06] LABS: BASO # 0.1 10^3/uL (0.0-0.2); BASO % 0.5 % (0.0-1.0); EOS # 0.2 10^3/uL (0.0-0.5); EOS % 2.5 % (0.0-3.0); HEMOGLOBIN 14.8 g/dl (13.5-17.5); LYMPH # 1.6 10^3/uL (1.5-5.0); LYMPH % 16.4 % (24.0-44.0); MEAN CORPUSCULAR HEMOGLOBIN 31.2 pg (27.0-33.0); MEAN CORPUSCULAR HGB CONC 32.2 g/dl (32.0-36.5); MEAN CORPUSCULAR VOLUME 96.8 fl (80.0-96.0); MONO # 0.7 10^3/uL (0.0-0.8); MONO % 6.9 % (2.0-8.0); NEUTROPHILS # 7.1 10^3/uL (1.5-8.5); NEUTROPHILS % 73.2 % (36.0-66.0); PLATELET COUNT, AUTOMATED 148 10^3/uL (150-450); RED BLOOD COUNT 4.75 10^6/uL (4.30-6.10); WHITE BLOOD COUNT 9.7 10^3/uL (4.0-10.0)
[2021-07-01 13:56] LABS: ALBUMIN 3.9 GM/DL (3.2-5.2); ALT/SGPT 9 U/L (12-78); BILIRUBIN,TOTAL 0.7 MG/DL (0.2-1.0); BLOOD UREA NITROGEN 31 MG/DL (7-18); CALCIUM LEVEL 9.6 MG/DL (8.8-10.2); CARBON DIOXIDE LEVEL 34 MEQ/L (21-32); CHLORIDE LEVEL 102 MEQ/L (98-107); CHOLESTEROL LEVEL 81 MG/DL (<200); CHOLESTEROL RISK RATIO 1.472 (<5); CREATININE FOR GFR 1.15 MG/DL (0.70-1.30); DIGOXIN LEVEL 1.4 NG/ML (0.5-2.0); GLOMERULAR FILTRATION RATE > 60.0 (>42); GLUCOSE, FASTING 124 MG/DL (70-100); HDL CHOLESTEROL 55 MG/DL (>40); IRON (FE) 78 UG/DL (65-175); LDL CHOLESTEROL 19 MG/DL (<100); NON-HDL-C 26 MG/DL; PERCENT SATURATION 29.3 % (19.7-50.0); POTASSIUM SERUM 4.2 MEQ/L (3.5-5.1); SODIUM LEVEL 140 MEQ/L (136-145); THYROID STIMULATING HORMONE 0.836 uIU/ML (0.358-3.740); TOTAL 25(OH) VITAMIN D 28.5 NG/ML (30.0-100.0); TOTAL IRON BINDING CAPACITY 266 UG/DL (250-450); TOTAL PROTEIN 7.1 GM/DL (6.4-8.2); TRIGLYCERIDES LEVEL 37 MG/DL (<150); VITAMIN B12 LEVEL 651 PG/ML (247-911)
[2021-07-01 13:57] LABS: FERRITIN 146 NG/ML (26-388)
[2021-07-01 14:42] LABS: HEMOGLOBIN A1c 5.9 %
== END ==
LOC: M PLALAB 09:45
DX: E78.00 Pure hypercholesterolemia, unspecified (principal); I10 Essential (primary) hypertension; I73.9 Peripheral vascular disease, unspecified; E11.65 Type 2 diabetes mellitus with hyperglycemia; I48.91 Unspecified atrial fibrillation; D64.9 Anemia, unspecified; R79.89 Other specified abnormal findings of blood chemistry; E55.9 Vitamin D deficiency, unspecified; Z79.899 Other long term (current) drug therapy

== ENCOUNTER → 2021-07-06 | Outpatient (CLI) | payer MEDICARE | LOC: M PLALAB 14:16 | DX: T46.0X1A Poisoning by cardiac-stimulant glycosides and drugs of similar action, accidental (unintentional), initial encounter (principal) ==

== ENCOUNTER → 2021-08-09 | Outpatient (REF) | payer MEDICARE | LOC: M LAB REF 17:01 | PROVIDERS: ATTEND Physician Assistant | DX: J06.9 Acute upper respiratory infection, unspecified (principal) ==

== ENCOUNTER → 2021-08-25 | Outpatient (CLI) | payer MEDICARE ==
[2021-08-25 15:32] LABS: BASO # 0.1 10^3/uL (0.0-0.2); BASO % 0.4 % (0.0-1.0); EOS # 0.1 10^3/uL (0.0-0.5); EOS % 0.7 % (0.0-3.0); HEMATOCRIT 40.6 % (42.0-52.0); HEMOGLOBIN 13.1 g/dl (13.5-17.5); LYMPH % 5.6 % (24.0-44.0); MEAN CORPUSCULAR HEMOGLOBIN 30.4 pg (27.0-33.0); MEAN CORPUSCULAR HGB CONC 32.3 g/dl (32.0-36.5); MEAN CORPUSCULAR VOLUME 94.2 fl (80.0-96.0); MONO # 1.1 10^3/uL (0.0-0.8); MONO % 6.7 % (2.0-8.0); NEUTROPHILS # 14.5 10^3/uL (1.5-8.5); NEUTROPHILS % 85.6 % (36.0-66.0); PLATELET COUNT, AUTOMATED 189 10^3/uL (150-450); RED BLOOD COUNT 4.31 10^6/uL (4.30-6.10); WHITE BLOOD COUNT 16.9 10^3/uL (4.0-10.0)
[2021-08-25 15:36] LABS: ALT/SGPT 9 U/L (12-78); BILIRUBIN,TOTAL 0.9 MG/DL (0.2-1.0); BLOOD UREA NITROGEN 26 MG/DL (7-18); CALCIUM LEVEL 9.6 MG/DL (8.8-10.2); CARBON DIOXIDE LEVEL 29 MEQ/L (21-32); CHLORIDE LEVEL 102 MEQ/L (98-107); CHOLESTEROL LEVEL 85 MG/DL (<200); CHOLESTEROL RISK RATIO 2.023 (<5); CREATININE FOR GFR 1.08 MG/DL (0.70-1.30); GLOMERULAR FILTRATION RATE > 60.0 (>42); GLUCOSE, FASTING 146 MG/DL (70-100); HDL CHOLESTEROL 42 MG/DL (>40); LDL CHOLESTEROL 32 MG/DL (<100); NON-HDL-C 43 MG/DL; POTASSIUM SERUM 3.8 MEQ/L (3.5-5.1); SODIUM LEVEL 139 MEQ/L (136-145); TOTAL PROTEIN 7.1 GM/DL (6.4-8.2); TRIGLYCERIDES LEVEL 53 MG/DL (<150)
[2021-08-25 16:11] LABS: CREATININE, URINE 32.4 MG/DL; MALB URINE SIEMENS 20.8 MG/L; MAU/CREAT RATIO 64.1 MCG/MG (0.0-30.0)
== END ==
LOC: M PLALAB 12:01
PROVIDERS: ATTEND Family Medicine
DX: E11.65 Type 2 diabetes mellitus with hyperglycemia (principal); I11.0 Hypertensive heart disease with heart failure

== ENCOUNTER → 2022-07-27 | Outpatient (CLI) | payer MEDICARE ==
[2022-07-27 13:20] LABS: BASO % 0.5 % (0.0-1.0); EOS # 0.2 10^3/uL (0.0-0.5); EOS % 2.4 % (0.0-3.0); HEMOGLOBIN 14.8 g/dl (13.5-17.5); LYMPH # 0.9 10^3/uL (1.5-5.0); LYMPH % 10.6 % (24.0-44.0); MEAN CORPUSCULAR HEMOGLOBIN 30.4 pg (27.0-33.0); MEAN CORPUSCULAR HGB CONC 31.5 g/dl (32.0-36.5); MEAN CORPUSCULAR VOLUME 96.5 fl (80.0-96.0); MONO # 0.8 10^3/uL (0.0-0.8); MONO % 9.4 % (2.0-8.0); NEUTROPHILS # 6.6 10^3/uL (1.5-8.5); NEUTROPHILS % 76.3 % (36.0-66.0); PLATELET COUNT, AUTOMATED 146 10^3/uL (150-450); RED BLOOD COUNT 4.87 10^6/uL (4.30-6.10); WHITE BLOOD COUNT 8.6 10^3/uL (4.0-10.0)
[2022-07-27 14:15] LABS: MALB URINE SIEMENS 40.1 MG/L; MAU/CREAT RATIO 38.1 MCG/MG (0.0-30.0)
[2022-07-27 15:14] LABS: ALBUMIN 3.8 GM/DL (3.2-5.2); ALT/SGPT 11 U/L (12-78); BILIRUBIN,TOTAL 1.1 MG/DL (0.2-1.0); BLOOD UREA NITROGEN 23 MG/DL (7-18); CALCIUM LEVEL 9.3 MG/DL (8.8-10.2); CARBON DIOXIDE LEVEL 32 MEQ/L (21-32); CHLORIDE LEVEL 102 MEQ/L (98-107); CHOLESTEROL LEVEL 82 MG/DL (<200); CHOLESTEROL RISK RATIO 1.673 (<5); CREATININE FOR GFR 1.04 MG/DL (0.70-1.30); FREE T4 1.03 NG/DL (0.76-1.46); GLOMERULAR FILTRATION RATE > 60.0 (>35); GLUCOSE, FASTING 138 MG/DL (70-100); HDL CHOLESTEROL 49 MG/DL (>40); LDL CHOLESTEROL 22 MG/DL (<100); NON-HDL-C 33 MG/DL; POTASSIUM SERUM 4.1 MEQ/L (3.5-5.1); SODIUM LEVEL 138 MEQ/L (136-145); THYROID STIMULATING HORMONE 0.843 uIU/ML (0.358-3.740); TOTAL PROTEIN 7.2 GM/DL (6.4-8.2); TRIGLYCERIDES LEVEL 53 MG/DL (<150)
[2022-07-27 15:37] LABS: HEMOGLOBIN A1c 6.3 %
[2022-07-27 17:01] LABS: TOTAL 25(OH) VITAMIN D 29.9 NG/ML (30.0-100.0)
== END ==
LOC: M PLALAB 10:32
PROVIDERS: ATTEND Nurse Practitioner Adult Health
DX: E11.65 Type 2 diabetes mellitus with hyperglycemia (principal); Z79.84 Long term (current) use of oral hypoglycemic drugs

== ENCOUNTER 2023-02-20 08:55 | Emergency (ER) | payer MEDICARE ==
[~2023-02-20] VITALS: Ht 175.3 cm; Wt 81.8 kg
[~2023-02-20 08:55] MED LIST changes: +CARB-113 PO; -CARB-89 PO
[2023-02-20] MEDS ORDERED: LIDOCAINE W/EPINEPHRINE 1% 20ML VIAL SC ONE (09:30)
[2023-02-20] MEDS ORDERED: BOOSTRIX VACCINE (TETANUS/DIPHTH/ACEL. PERTUSSIS) 0.5ML SYR IM.IMMUN ONE (09:30)
[2023-02-20 09:56] VITALS: BP 176/88
== END 2023-02-20 10:08 | disposition home or self-care (01) ==
LOC: EDBD 08:55 → M ED 08:55
DX: S01.81XA Laceration without foreign body of other part of head, initial encounter (principal); W06.XXXA Fall from bed, initial encounter; E11.9 Type 2 diabetes mellitus without complications; J44.9 Chronic obstructive pulmonary disease, unspecified; I10 Essential (primary) hypertension; E78.5 Hyperlipidemia, unspecified; Z86.79 Personal history of other diseases of the circulatory system; Z87.891 Personal history of nicotine dependence; Z91.018 Allergy to other foods; Z91.048 Other nonmedicinal substance allergy status; Y92.009 Unspecified place in unspecified non-institutional (private) residence as the place of occurrence of the external cause; Z79.02 Long term (current) use of antithrombotics/antiplatelets; Z79.4 Long term (current) use of insulin; Z79.01 Long term (current) use of anticoagulants; Z79.899 Other long term (current) drug therapy; Z23 Encounter for immunization

== ENCOUNTER → 2023-03-13 | Outpatient (CLI) | payer MEDICARE ==
[2023-03-13 14:01] LABS: BASO % 0.5 % (0.0-1.0); EOS # 0.2 10^3/uL (0.0-0.5); EOS % 2.6 % (0.0-3.0); HEMATOCRIT 45.8 % (42.0-52.0); HEMOGLOBIN 14.5 g/dl (13.5-17.5); LYMPH # 1.3 10^3/uL (1.5-5.0); LYMPH % 15.7 % (24.0-44.0); MEAN CORPUSCULAR HEMOGLOBIN 30.6 pg (27.0-33.0); MEAN CORPUSCULAR HGB CONC 31.7 g/dl (32.0-36.5); MEAN CORPUSCULAR VOLUME 96.6 fl (80.0-96.0); MONO # 0.6 10^3/uL (0.0-0.8); MONO % 6.6 % (2.0-8.0); NEUTROPHILS # 6.3 10^3/uL (1.5-8.5); NEUTROPHILS % 74.2 % (36.0-66.0); PLATELET COUNT, AUTOMATED 154 10^3/uL (150-450); RED BLOOD COUNT 4.74 10^6/uL (4.30-6.10); WHITE BLOOD COUNT 8.5 10^3/uL (4.0-10.0)
[2023-03-13 14:07] LABS: ALBUMIN 4.1 G/DL (3.2-5.2); ALKALINE PHOSPHATASE 79 U/L (46-116); ALT/SGPT 12 U/L (7.0-40); AST/SGOT 20 U/L (<34); BILIRUBIN,TOTAL 1.2 MG/DL (0.3-1.2); BLOOD UREA NITROGEN 21 MG/DL (9-23); CALCIUM LEVEL 9.5 MG/DL (8.3-10.6); CARBON DIOXIDE LEVEL 32 MMOL/L (20-31); CHLORIDE LEVEL 102 MMOL/L (98-107); CHOLESTEROL LEVEL 84 MG/DL (<200); CHOLESTEROL RISK RATIO 2.27 (<5); FREE T4 1.14 NG/DL (0.89-1.76); GLOMERULAR FILTRATION RATE > 60.0 (>35); GLUCOSE, FASTING 127 MG/DL (74-106); LDL CHOLESTEROL 30.6 MG/DL (<100); POTASSIUM SERUM 3.7 MMOL/L (3.5-5.1); SODIUM LEVEL 139 MMOL/L (136-145); THYROID STIMULATING HORMONE 1.019 uIU/ML (0.55-4.78); TRIGLYCERIDES LEVEL 82 MG/DL (<150)
[2023-03-13 14:25] LABS: HEMOGLOBIN A1c 6.2 % (4.0-6.0)
[2023-03-14 23:08] LABS: PSA TOTAL 1.4 ng/mL (0.0-4.0)
== END ==
LOC: M PLALAB 09:08
PROVIDERS: ATTEND Nurse Practitioner Adult Health
DX: E11.65 Type 2 diabetes mellitus with hyperglycemia (principal); E78.5 Hyperlipidemia, unspecified; I11.0 Hypertensive heart disease with heart failure; E55.9 Vitamin D deficiency, unspecified; Z12.5 Encounter for screening for malignant neoplasm of prostate

== ENCOUNTER 2023-04-29 12:16 | Emergency (ER) | payer MEDICARE ==
[~2023-04-29] VITALS: Ht 175.3 cm; Wt 77.3 kg
[~2023-04-29 12:16] MED LIST changes: -ROPI0.5T3 PO; +ROPI0.5T33 PO; -ROPI1TAB3 PO; +ROPI1TAB73 PO
[2023-04-29] MEDS ORDERED: XARE20TA (12:34)
[2023-04-29 14:53] VITALS: BP 159/76; TEMP 98.4; O2SAT 98
== END 2023-04-29 14:55 | disposition home or self-care (01) ==
LOC: M ED 12:16
DX: I83.899 Varicose veins of unspecified lower extremity with other complications (principal); E78.5 Hyperlipidemia, unspecified; I10 Essential (primary) hypertension; E11.9 Type 2 diabetes mellitus without complications; G47.33 Obstructive sleep apnea (adult) (pediatric); F17.200 Nicotine dependence, unspecified, uncomplicated; Z86.79 Personal history of other diseases of the circulatory system; Z91.018 Allergy to other foods; Z91.048 Other nonmedicinal substance allergy status; Z79.02 Long term (current) use of antithrombotics/antiplatelets; Z79.4 Long term (current) use of insulin; Z79.899 Other long term (current) drug therapy

== ENCOUNTER → 2023-06-08 | Outpatient (CLI) | payer MEDICARE ==
[~2023-06-08] MED LIST changes: +XARE20TA
== END ==
LOC: M RAD 12:06
PROVIDERS: ATTEND Surgery Vascular Surgery
DX: I87.2 Venous insufficiency (chronic) (peripheral) (principal)

== ENCOUNTER → 2023-06-20 | Outpatient (CLI) | payer MEDICARE ==
[2023-06-20 15:21] LABS: BASO # 0.1 10^3/uL (0.0-0.2); BASO % 0.6 % (0.0-1.0); EOS # 0.2 10^3/uL (0.0-0.5); EOS % 1.6 % (0.0-3.0); HEMATOCRIT 42.8 % (42.0-52.0); HEMOGLOBIN 13.8 g/dl (13.5-17.5); LYMPH # 1.3 10^3/uL (1.5-5.0); LYMPH % 11.8 % (24.0-44.0); MEAN CORPUSCULAR HEMOGLOBIN 30.6 pg (27.0-33.0); MEAN CORPUSCULAR HGB CONC 32.2 g/dl (32.0-36.5); MEAN CORPUSCULAR VOLUME 94.9 fl (80.0-96.0); MONO # 0.7 10^3/uL (0.0-0.8); MONO % 6.4 % (2.0-8.0); NEUTROPHILS # 8.5 10^3/uL (1.5-8.5); NEUTROPHILS % 78.6 % (36.0-66.0); PLATELET COUNT, AUTOMATED 180 10^3/uL (150-450); RED BLOOD COUNT 4.51 10^6/uL (4.30-6.10); WHITE BLOOD COUNT 10.8 10^3/uL (4.0-10.0)
[2023-06-20 15:42] LABS: CREATININE, URINE 24.1 MG/DL; MAU/CREAT RATIO 24.8 MCG/MG (0.0-30.0)
[2023-06-20 15:46] LABS: HEMOGLOBIN A1c 6.3 % (4.0-6.0)
[2023-06-20 15:48] LABS: ALBUMIN 3.8 G/DL (3.2-5.2); ALKALINE PHOSPHATASE 85 U/L (46-116); ALT/SGPT < 9 U/L (7.0-40); AST/SGOT 14 U/L (<34); BILIRUBIN,TOTAL 1.4 MG/DL (0.3-1.2); BLOOD UREA NITROGEN 25 MG/DL (9-23); CALCIUM LEVEL 9.2 MG/DL (8.3-10.6); CARBON DIOXIDE LEVEL 32 MMOL/L (20-31); CHLORIDE LEVEL 102 MMOL/L (98-107); CHOLESTEROL LEVEL 90 MG/DL (<200); CHOLESTEROL RISK RATIO 2.18 (<5); CREATININE FOR GFR 0.97 MG/DL (0.70-1.30); GLOMERULAR FILTRATION RATE > 60.0 (>35); GLUCOSE, FASTING 144 MG/DL (74-106); HDL CHOLESTEROL 41.1 MG/DL (>40); LDL CHOLESTEROL 32.9 MG/DL (<100); NON-HDL-C 48.9 MG/DL; POTASSIUM SERUM 4.2 MMOL/L (3.5-5.1); SODIUM LEVEL 141 MMOL/L (136-145); THYROID STIMULATING HORMONE 1.075 uIU/ML (0.55-4.78); TOTAL 25(OH) VITAMIN D 30.2 NG/ML (20.0-100.0); TRIGLYCERIDES LEVEL 80 MG/DL (<150)
== END ==
LOC: M PLALAB 10:29
PROVIDERS: ATTEND Nurse Practitioner Adult Health
DX: E11.65 Type 2 diabetes mellitus with hyperglycemia (principal); I11.0 Hypertensive heart disease with heart failure; E55.9 Vitamin D deficiency, unspecified; I50.9 Heart failure, unspecified; Z79.899 Other long term (current) drug therapy

== ENCOUNTER → 2024-03-08 | Outpatient (CLI) | payer MEDICARE ==
[2024-03-08 14:06] LABS: BASO # 0.1 10^3/uL (0.0-0.2); BASO % 0.5 % (0.0-1.0); EOS # 0.3 10^3/uL (0.0-0.5); EOS % 2.4 % (0.0-3.0); HEMATOCRIT 44.8 % (42.0-52.0); HEMOGLOBIN 14.5 g/dl (13.5-17.5); LYMPH # 1.5 10^3/uL (1.5-5.0); LYMPH % 13.6 % (24.0-44.0); MEAN CORPUSCULAR HEMOGLOBIN 30.6 pg (27.0-33.0); MEAN CORPUSCULAR HGB CONC 32.4 g/dl (32.0-36.5); MEAN CORPUSCULAR VOLUME 94.5 fl (80.0-96.0); MONO # 0.7 10^3/uL (0.0-0.8); MONO % 6.8 % (2.0-8.0); NEUTROPHILS # 8.3 10^3/uL (1.5-8.5); NEUTROPHILS % 76.1 % (36.0-66.0); PLATELET COUNT, AUTOMATED 180 10^3/uL (150-450); RED BLOOD COUNT 4.74 10^6/uL (4.30-6.10); WHITE BLOOD COUNT 10.9 10^3/uL (4.0-10.0)
[2024-03-08 14:11] LABS: ALKALINE PHOSPHATASE 90 U/L (46-116); ALT/SGPT 10 U/L (7.0-40); AST/SGOT 14 U/L (<34); BLOOD UREA NITROGEN 25 MG/DL (9-23); CALCIUM LEVEL 9.6 MG/DL (8.3-10.6); CARBON DIOXIDE LEVEL 32 MMOL/L (20-31); CHLORIDE LEVEL 104 MMOL/L (98-107); CHOLESTEROL LEVEL 90 MG/DL (<200); CHOLESTEROL RISK RATIO 2.14 (<5); CREATININE FOR GFR 0.95 MG/DL (0.70-1.30); DIGOXIN LEVEL 1.1 NG/ML (0.8-2.0); GLOMERULAR FILTRATION RATE > 60.0 (>35); GLUCOSE, FASTING 128 MG/DL (74-106); HDL CHOLESTEROL 41.9 MG/DL (>40); IRON (FE) 64 UG/DL (65-175); LDL CHOLESTEROL 35.1 MG/DL (<100); NON-HDL-C 48.1 MG/DL; PERCENT SATURATION 22.5 % (19.7-50.0); POTASSIUM SERUM 4.1 MMOL/L (3.5-5.1); SODIUM LEVEL 142 MMOL/L (136-145); TOTAL IRON BINDING CAPACITY 285 UG/DL (250-425); TOTAL PROTEIN 7.4 G/DL (5.7-8.2); TRIGLYCERIDES LEVEL 65 MG/DL (<150)
[2024-03-08 14:12] LABS: THYROID STIMULATING HORMONE 0.963 uIU/ML (0.55-4.78); TOTAL 25(OH) VITAMIN D 42.8 NG/ML (20.0-100.0)
[2024-03-08 14:13] LABS: FREE T4 1.26 NG/DL (0.89-1.76)
[2024-03-08 14:25] LABS: HEMOGLOBIN A1c 6.5 % (4.0-6.0)
[2024-03-08 16:21] LABS: CREATININE, URINE 35.1 MG/DL; MAU/CREAT RATIO 25.6 MCG/MG (0.0-30.0)
== END ==
LOC: M PLALAB 09:43
PROVIDERS: ATTEND Family Medicine
DX: E55.9 Vitamin D deficiency, unspecified (principal); D64.9 Anemia, unspecified; E78.5 Hyperlipidemia, unspecified; E11.52 Type 2 diabetes mellitus with diabetic peripheral angiopathy with gangrene; Z12.5 Encounter for screening for malignant neoplasm of prostate; I48.20 Chronic atrial fibrillation, unspecified

== ENCOUNTER 2024-07-01 14:36 | Inpatient (IN) | payer MEDICARE ==
[~2024-07-01] VITALS: Ht 175.3 cm; Wt 74.7 kg
[~2024-07-01 14:36] MED LIST changes: -XARE20TA
[2024-07-01] MEDS ORDERED: fentaNYL 100 MCG/2 ML INJECTION IV ONE (16:50)
[2024-07-01] MEDS: ONDANSETRON 4MG 2ML VIAL IV ONE (17:17)
[2024-07-01] MEDS: fentaNYL 100 MCG/2 ML INJECTION IV ONE (17:18)
[2024-07-01 19:28] LABS: HEMATOCRIT 46.6 % (42.0-52.0); HEMOGLOBIN 15.7 g/dl (13.5-17.5); MEAN CORPUSCULAR HEMOGLOBIN 30.7 pg (27.0-33.0); MEAN CORPUSCULAR HGB CONC 33.7 g/dl (32.0-36.5); MEAN CORPUSCULAR VOLUME 91.2 fl (80.0-96.0); PLATELET COUNT, AUTOMATED 174 10^3/uL (150-450); RED BLOOD COUNT 5.11 10^6/uL (4.30-6.10); WHITE BLOOD COUNT 14.2 10^3/uL (4.0-10.0)
[2024-07-01] MEDS ORDERED: MOM 30ML SUSPENSION UDC PO PRN (19:45)
[2024-07-01] MEDS ORDERED: GLUCOSE 4 GM CHEW PO PRN (19:50)
[2024-07-01] MEDS ORDERED: GLUCAGON INJ 1MG VIAL SC PRN (19:50)
[2024-07-01] MEDS ORDERED: DEXTROSE 50% 50ML SYRINGE IV PRN (19:50)
[2024-07-01] MEDS ORDERED: THERTAB19 PO (19:51)
[2024-07-01] MEDS ORDERED: RA V400C PO (19:51)
[2024-07-01] MEDS ORDERED: METF-838 PO (19:51)
[2024-07-01] MEDS ORDERED: RASA1TAB PO (19:51)
[2024-07-01] MEDS ORDERED: IBUP-1764 PO (19:52)
[2024-07-01] MEDS ORDERED: HOME MED LIST COMPLETE! XX SCH (19:55)
[2024-07-01 20:11] LABS: CALCIUM LEVEL 10.2 MG/DL (8.3-10.6); CREATININE FOR GFR 1.24 MG/DL (0.70-1.30); GLOMERULAR FILTRATION RATE 59.4 (>35); POTASSIUM SERUM 4.6 MMOL/L (3.5-5.1)
[2024-07-01 21:15] VITALS: BP 145/98; TEMP 97.9; O2SAT 91
[2024-07-01] MEDS: AMANTADINE 100MG TABLET PO SCH (21:55)
[2024-07-01] MEDS: SINEMET 25-100 MG TAB PO SCH (21:56)
[2024-07-01] MEDS: rOPINIRole 0.25 MG TAB(REQUIP) PO SCH (21:56)
[2024-07-01] MEDS: QUEtiapine FUMARATE 25 MG TAB PO SCH (21:56)
[2024-07-01] MEDS: rOPINIRole 1MG TAB PO SCH (21:56)
[2024-07-01] MEDS: ATORVASTATIN 20 MG TAB PO SCH (21:56)
[2024-07-01] MEDS: bisoproloL fumarate 5 MG TAB PO SCH (21:57)
[2024-07-01] MEDS ORDERED: LIDOCAINE 5% (LIDODERM) PATCH TD PRN (22:45)
[2024-07-01] MEDS ORDERED: HYDROMORPHONE HCL 0.5 MG/ 0.5 ML SYRINGE IV PRN (22:45)
[2024-07-01] MEDS ORDERED: MORPHINE 4 MG/ML 1ML VIAL IV PRN (23:35)
[2024-07-02] MEDS: INSULIN LISPRO (NovoLOG) PER UNIT SC SCH
[2024-07-02 03:47] VITALS: BP 104/60; TEMP 97.7; O2SAT 91
[2024-07-02 06:02] LABS: HEMOGLOBIN 15.8 g/dl (13.5-17.5); MEAN CORPUSCULAR HEMOGLOBIN 30.6 pg (27.0-33.0); MEAN CORPUSCULAR HGB CONC 33.6 g/dl (32.0-36.5); MEAN CORPUSCULAR VOLUME 91.1 fl (80.0-96.0); PLATELET COUNT, AUTOMATED 166 10^3/uL (150-450); RED BLOOD COUNT 5.16 10^6/uL (4.30-6.10); WHITE BLOOD COUNT 12.3 10^3/uL (4.0-10.0)
[2024-07-02 06:23] LABS: ALBUMIN 3.9 G/DL (3.2-5.2); ALKALINE PHOSPHATASE 87 U/L (46-116); ALT/SGPT < 9 U/L (7.0-40); AST/SGOT 14 U/L (<34); BILIRUBIN,TOTAL 1.9 MG/DL (0.3-1.2); BLOOD UREA NITROGEN 48 MG/DL (9-23); CALCIUM LEVEL 10.4 MG/DL (8.3-10.6); CARBON DIOXIDE LEVEL 34 MMOL/L (20-31); CHLORIDE LEVEL 98 MMOL/L (98-107); CREATININE FOR GFR 1.53 MG/DL (0.70-1.30); GLOMERULAR FILTRATION RATE 46.6 (>35); GLUCOSE, FASTING 151 MG/DL (74-106); POTASSIUM SERUM 3.5 MMOL/L (3.5-5.1); SODIUM LEVEL 140 MMOL/L (136-145); TOTAL PROTEIN 7.3 G/DL (5.7-8.2)
[2024-07-02] MEDS: DIGOXIN 0.125 MG TAB PO SCH (08:12)
[2024-07-02] MEDS: NS 1,000 ML IV SCH (08:15)
[2024-07-02] MEDS ORDERED: FUROSEMIDE 40 MG TAB PO SCH (09:00)
[2024-07-02 12:08] VITALS: BP 131/82; TEMP 97.9; O2SAT 89
[2024-07-02 20:49] VITALS: BP 131/81; TEMP 98.4; O2SAT 91
[2024-07-03] MEDS ORDERED: GLUCAGON INJ 1MG VIAL SC PRN (00:20)
[2024-07-03] MEDS ORDERED: GLUCOSE 4 GM CHEW PO PRN (00:20)
[2024-07-03] MEDS ORDERED: DEXTROSE 50% 50ML SYRINGE IV PRN (00:20)
[2024-07-03 04:06] VITALS: BP 113/57; TEMP 97.9; O2SAT 92
[2024-07-03 07:30] LABS: BASO # 0.1 10^3/uL (0.0-0.2); BASO % 0.4 % (0.0-1.0); EOS # 0.4 10^3/uL (0.0-0.5); EOS % 3.3 % (0.0-3.0); HEMATOCRIT 43.8 % (42.0-52.0); HEMOGLOBIN 14.9 g/dl (13.5-17.5); LYMPH # 1.3 10^3/uL (1.5-5.0); LYMPH % 11.4 % (24.0-44.0); MEAN CORPUSCULAR HEMOGLOBIN 30.7 pg (27.0-33.0); MEAN CORPUSCULAR VOLUME 90.3 fl (80.0-96.0); MONO # 0.9 10^3/uL (0.0-0.8); NEUTROPHILS # 8.5 10^3/uL (1.5-8.5); NEUTROPHILS % 76.4 % (36.0-66.0); PLATELET COUNT, AUTOMATED 158 10^3/uL (150-450); RED BLOOD COUNT 4.85 10^6/uL (4.30-6.10); WHITE BLOOD COUNT 11.2 10^3/uL (4.0-10.0)
[2024-07-03 07:57] LABS: BLOOD UREA NITROGEN 41 MG/DL (9-23); CALCIUM LEVEL 9.4 MG/DL (8.3-10.6); CARBON DIOXIDE LEVEL 30 MMOL/L (20-31); CHLORIDE LEVEL 103 MMOL/L (98-107); CREATININE FOR GFR 1.13 MG/DL (0.70-1.30); GLOMERULAR FILTRATION RATE > 60.0 (>35); GLUCOSE, FASTING 153 MG/DL (74-106); POTASSIUM SERUM 3.4 MMOL/L (3.5-5.1); SODIUM LEVEL 139 MMOL/L (136-145)
[2024-07-03] MEDS: INSULIN LISPRO (NovoLOG) PER UNIT SC SCH ×2 (08:40→20:15)
[2024-07-03 12:00] VITALS: BP 133/84; TEMP 97.7; O2SAT 92
[2024-07-03] MEDS: POTASSIUM CHLORIDE 10MEQ SR TABLET PO SCH (15:44)
[2024-07-03] MEDS: ACETAMINOPHEN TAB 650MG DOSE (2X325MG) PO PRN (15:44)
[2024-07-03] MEDS: RIVAROXABAN 20MG TAB (XARELTO) PO SCH (17:44)
[2024-07-03 20:07] VITALS: BP 135/80; TEMP 97.9; O2SAT 95
[2024-07-04] MEDS ORDERED: PERMETHRIN 5% CREAM 60 GM TOP SCH
[2024-07-04 04:34] VITALS: BP 136/80; TEMP 97.9; O2SAT 92
[2024-07-04 06:43] LABS: BLOOD UREA NITROGEN 33 MG/DL (9-23); CALCIUM LEVEL 9.7 MG/DL (8.3-10.6); CARBON DIOXIDE LEVEL 32 MMOL/L (20-31); CHLORIDE LEVEL 101 MMOL/L (98-107); CREATININE FOR GFR 1.01 MG/DL (0.70-1.30); GLOMERULAR FILTRATION RATE > 60.0 (>35); GLUCOSE, FASTING 104 MG/DL (74-106); MAGNESIUM LEVEL 1.9 MG/DL (1.8-2.4); POTASSIUM SERUM 3.8 MMOL/L (3.5-5.1); SODIUM LEVEL 139 MMOL/L (136-145)
[2024-07-04 12:00] VITALS: BP 127/73; TEMP 97.5; O2SAT 94
[2024-07-04] MEDS: PERMETHRIN 5% CREAM 60 GM TOP ONE (17:19)
[2024-07-04 19:35] VITALS: BP 148/72; TEMP 97.9; O2SAT 92
[2024-07-05 04:04] VITALS: BP 114/76; TEMP 97.7; O2SAT 91
[2024-07-05 06:37] LABS: BLOOD UREA NITROGEN 32 MG/DL (9-23); CALCIUM LEVEL 9.5 MG/DL (8.3-10.6); CARBON DIOXIDE LEVEL 30 MMOL/L (20-31); CHLORIDE LEVEL 101 MMOL/L (98-107); CREATININE FOR GFR 1.02 MG/DL (0.70-1.30); GLOMERULAR FILTRATION RATE > 60.0 (>35); GLUCOSE, FASTING 129 MG/DL (74-106); MAGNESIUM LEVEL 1.8 MG/DL (1.8-2.4); POTASSIUM SERUM 3.6 MMOL/L (3.5-5.1); SODIUM LEVEL 138 MMOL/L (136-145)
[2024-07-05 08:00] VITALS: BP_SYST 139; BP_SYST 152; BP_DIAS 78; BP_DIAS 80; TEMP 97.7; TEMP 97.9; O2SAT 93; O2SAT 94
[2024-07-05 08:42] VITALS: BP 117/73
== END 2024-07-05 11:20 | DRG 536 ==
LOC: M ED 14:36 → EDBD 14:36 → M ED INP 19:43 → M MS5PR 21:15
PROVIDERS: ADMIT Student in an Organized Health Care Education/Training Program; ATTEND Student in an Organized Health Care Education/Training Program
DX: S72.144A Nondisplaced intertrochanteric fracture of right femur, initial encounter for closed fracture (principal); I50.32 Chronic diastolic (congestive) heart failure; N17.9 Acute kidney failure, unspecified; I11.0 Hypertensive heart disease with heart failure; G20.A1 Parkinson's disease without dyskinesia, without mention of fluctuations; I27.20 Pulmonary hypertension, unspecified; E11.9 Type 2 diabetes mellitus without complications; E78.5 Hyperlipidemia, unspecified; I48.91 Unspecified atrial fibrillation; G47.33 Obstructive sleep apnea (adult) (pediatric); Z86.73 Personal history of transient ischemic attack (TIA), and cerebral infarction without residual deficits; K21.9 Gastro-esophageal reflux disease without esophagitis; Z91.018 Allergy to other foods; Z91.040 Latex allergy status; Z88.8 Allergy status to other drugs, medicaments and biological substances; Z79.899 Other long term (current) drug therapy; Z79.01 Long term (current) use of anticoagulants; Z87.891 Personal history of nicotine dependence; W18.30XA Fall on same level, unspecified, initial encounter; Y92.009 Unspecified place in unspecified non-institutional (private) residence as the place of occurrence of the external cause

== ENCOUNTER 2024-07-05 09:01 | Inpatient (IN) | payer MEDICARE ==
[~2024-07-05] VITALS: Ht 175.3 cm; Wt 76.9 kg
[~2024-07-05 09:01] MED LIST changes: +IBUP-1764 PO; +RA V400C PO; +RASA1TAB PO; +THERTAB19 PO
[2024-07-05] MEDS ORDERED: BISACODYL 10MG SUPP PR PRN (10:05)
[2024-07-05] MEDS ORDERED: GLUCAGON INJ 1MG VIAL SC PRN (10:05)
[2024-07-05] MEDS ORDERED: traMADol 50 MG TAB PO PRN ×2 (10:05)
[2024-07-05] MEDS ORDERED: BISACODYL 5MG TAB PO PRN (10:05)
[2024-07-05] MEDS ORDERED: MIRALAX *UNIT DOSE* 17GM PACKET PO PRN (10:05)
[2024-07-05] MEDS ORDERED: MAALOX 30 ML SUSP *UDC PO PRN (10:05)
[2024-07-05] MEDS ORDERED: GLUCOSE 4 GM CHEW PO PRN (10:05)
[2024-07-05] MEDS ORDERED: SIMETHICONE 80MG CHEW TAB PO PRN (10:05)
[2024-07-05] MEDS ORDERED: DEXTROSE 50% 50ML SYRINGE IV PRN (10:05)
[2024-07-05] MEDS ORDERED: ONDANSETRON 4MG TAB PO PRN (10:05)
[2024-07-05] MEDS ORDERED: MOM 30ML SUSPENSION UDC PO PRN (10:05)
[2024-07-05 11:30] VITALS: BP 108/63; TEMP 97.9; O2SAT 97
[2024-07-05 12:00] VITALS: BP 108/63; TEMP 97.9; O2SAT 95
[2024-07-05] MEDS ORDERED: NITROGLYCERIN 0.4MG SUBL TABLET SL PRN (13:45)
[2024-07-05] MEDS: INSULIN LISPRO (NovoLOG) PER UNIT SC SCH ×2 (13:52→20:00)
[2024-07-05] MEDS: rOPINIRole 0.25 MG TAB(REQUIP) PO SCH (16:11)
[2024-07-05] MEDS: rOPINIRole 1MG TAB PO SCH (16:11)
[2024-07-05] MEDS: SINEMET 25-100 MG TAB PO SCH (16:13)
[2024-07-05] MEDS: LIDOCAINE 5% (LIDODERM) PATCH TD SCH (16:27)
[2024-07-05] MEDS: RIVAROXABAN 20MG TAB (XARELTO) PO SCH (16:45)
[2024-07-05] MEDS: AMANTADINE 100MG TABLET PO SCH (16:55)
[2024-07-05 20:00] VITALS: BP 162/69; TEMP 97.8; O2SAT 90
[2024-07-05 20:30] VITALS: BP 148/76
[2024-07-05] MEDS: SENOKOT S TAB PO SCH (21:10)
[2024-07-05] MEDS: bisoproloL fumarate 5 MG TAB PO SCH (21:10)
[2024-07-05] MEDS: ATORVASTATIN 20 MG TAB PO SCH (21:10)
[2024-07-05] MEDS: QUEtiapine FUMARATE 50MG TAB PO SCH (21:11)
[2024-07-05] MEDS: ACETAMINOPHEN TAB 650MG DOSE (2X325MG) PO PRN (21:11)
[2024-07-06 05:45] VITALS: BP 157/73; TEMP 97.2; O2SAT 97
[2024-07-06 06:35] LABS: BASO # 0.1 10^3/uL (0.0-0.2); BASO % 0.7 % (0.0-1.0); EOS # 0.4 10^3/uL (0.0-0.5); HEMATOCRIT 45.4 % (42.0-52.0); LYMPH # 2.2 10^3/uL (1.5-5.0); MEAN CORPUSCULAR HEMOGLOBIN 30.4 pg (27.0-33.0); MEAN CORPUSCULAR VOLUME 91.9 fl (80.0-96.0); MONO # 0.9 10^3/uL (0.0-0.8); MONO % 8.9 % (2.0-8.0); NEUTROPHILS # 6.4 10^3/uL (1.5-8.5); NEUTROPHILS % 63.4 % (36.0-66.0); PLATELET COUNT, AUTOMATED 166 10^3/uL (150-450); RED BLOOD COUNT 4.94 10^6/uL (4.30-6.10); WHITE BLOOD COUNT 10.1 10^3/uL (4.0-10.0)
[2024-07-06 06:59] LABS: BLOOD UREA NITROGEN 28 MG/DL (9-23); CALCIUM LEVEL 9.4 MG/DL (8.3-10.6); CARBON DIOXIDE LEVEL 30 MMOL/L (20-31); CHLORIDE LEVEL 102 MMOL/L (98-107); CREATININE FOR GFR 0.92 MG/DL (0.70-1.30); GLOMERULAR FILTRATION RATE > 60.0 (>35); GLUCOSE, FASTING 122 MG/DL (74-106); POTASSIUM SERUM 4.5 MMOL/L (3.5-5.1); SODIUM LEVEL 137 MMOL/L (136-145)
[2024-07-06] MEDS: MULTIVITAMINS/MINERALS THERAP 1 TAB PO SCH (08:17)
[2024-07-06] MEDS: metFORMIN XR 500MG TAB *GLUCOPHAGE XR PO SCH (08:18)
[2024-07-06] MEDS: DIGOXIN 0.125 MG TAB PO SCH (08:18)
[2024-07-06 12:00] VITALS: BP 137/61; TEMP 97.4; O2SAT 95
[2024-07-06 20:00] VITALS: BP 118/70; TEMP 98.5; O2SAT 97
[2024-07-07 04:00] VITALS: BP 140/70; TEMP 97.3; O2SAT 98
[2024-07-07 12:00] VITALS: BP 118/63; TEMP 98; O2SAT 98
[2024-07-07 19:25] VITALS: BP 132/61; TEMP 98.4; O2SAT 97
[2024-07-08 03:01] VITALS: BP 135/88; TEMP 98; O2SAT 91
[2024-07-08 07:09] LABS: BLOOD UREA NITROGEN 27 MG/DL (9-23); CALCIUM LEVEL 8.9 MG/DL (8.3-10.6); CARBON DIOXIDE LEVEL 29 MMOL/L (20-31); CHLORIDE LEVEL 102 MMOL/L (98-107); CREATININE FOR GFR 1.04 MG/DL (0.70-1.30); GLOMERULAR FILTRATION RATE > 60.0 (>35); GLUCOSE, FASTING 135 MG/DL (74-106); POTASSIUM SERUM 3.8 MMOL/L (3.5-5.1); SODIUM LEVEL 137 MMOL/L (136-145)
[2024-07-08] MEDS: FUROSEMIDE 40 MG TAB PO SCH (08:53)
[2024-07-08 12:00] VITALS: BP 126/77; TEMP 98.1; O2SAT 98
[2024-07-08 20:00] VITALS: BP 131/72; TEMP 98.3; O2SAT 96
[2024-07-09 04:00] VITALS: BP 159/72; TEMP 97.3; O2SAT 90
[2024-07-09 12:00] VITALS: BP 124/84; TEMP 97.9; O2SAT 96
[2024-07-09 20:05] VITALS: BP 140/80; TEMP 98; O2SAT 96
[2024-07-09] MEDS: DONEPEZIL 5 MG TAB PO SCH (20:06)
[2024-07-09] MEDS: QUEtiapine FUMARATE 50MG TAB PO SCH (20:07)
[2024-07-10 03:35] VITALS: BP 147/70; TEMP 97; O2SAT 96
[2024-07-10 12:00] VITALS: BP 142/78; TEMP 97.6; O2SAT 96
[2024-07-10 20:00] VITALS: BP 137/68; TEMP 97.7; O2SAT 97
[2024-07-11 06:00] VITALS: BP 152/70; TEMP 97.9; O2SAT 100
[2024-07-11 12:00] VITALS: BP 147/70; TEMP 97.3; O2SAT 98
[2024-07-11 19:47] VITALS: BP 129/56; TEMP 98.8; O2SAT 97
[2024-07-11] MEDS: PERMETHRIN 5% CREAM 60 GM TOP ONE (20:19)
[2024-07-12 04:07] VITALS: BP 132/60; TEMP 97.2; O2SAT 99
[2024-07-12 12:00] VITALS: BP 137/61; TEMP 98.2; O2SAT 94
[2024-07-12 20:00] VITALS: BP 142/77; TEMP 97.9; O2SAT 99
[2024-07-13 04:00] VITALS: BP 136/73; TEMP 97.8; O2SAT 96
[2024-07-13 12:00] VITALS: BP 119/78; TEMP 97.2; O2SAT 95
[2024-07-13 19:55] VITALS: BP 140/56; TEMP 98; O2SAT 100
[2024-07-14 04:00] VITALS: BP 144/66; TEMP 97.6; O2SAT 98
[2024-07-14 12:00] VITALS: BP 132/62; TEMP 98.3; O2SAT 99
[2024-07-14 20:00] VITALS: BP 140/61; TEMP 97.8; O2SAT 98
[2024-07-15 03:52] VITALS: BP 137/66; TEMP 97.9; O2SAT 98
[2024-07-15 12:00] VITALS: BP 139/62; TEMP 98.2; O2SAT 94
[2024-07-15] MEDS ORDERED: FURO40TA2 PO (15:09)
[2024-07-15] MEDS ORDERED: ACET1TAB55 PO (15:09)
[2024-07-15] MEDS ORDERED: LIDO5TD TD (15:09)
[2024-07-15] MEDS ORDERED: ARIC1TAB PO (15:09)
[2024-07-15 20:00] VITALS: BP 119/59; TEMP 98.8; O2SAT 98
[2024-07-16 04:00] VITALS: BP 151/67; TEMP 97.8; O2SAT 96
[2024-07-16 08:01] VITALS: BP 149/70
== END 2024-07-16 12:00 | disposition home health service (06) | DRG 560 ==
LOC: M PM&R 11:35
PROVIDERS: ADMIT Physical Medicine & Rehabilitation; ATTEND Physical Medicine & Rehabilitation
DX: S72.111D Displaced fracture of greater trochanter of right femur, subsequent encounter for closed fracture with routine healing (principal); I50.32 Chronic diastolic (congestive) heart failure; I48.91 Unspecified atrial fibrillation; G20.A1 Parkinson's disease without dyskinesia, without mention of fluctuations; Z86.73 Personal history of transient ischemic attack (TIA), and cerebral infarction without residual deficits; E11.9 Type 2 diabetes mellitus without complications; E66.01 Morbid (severe) obesity due to excess calories; E78.5 Hyperlipidemia, unspecified; I11.0 Hypertensive heart disease with heart failure; I27.20 Pulmonary hypertension, unspecified; G47.33 Obstructive sleep apnea (adult) (pediatric); Z86.718 Personal history of other venous thrombosis and embolism; Z79.01 Long term (current) use of anticoagulants; Z85.828 Personal history of other malignant neoplasm of skin; Z87.891 Personal history of nicotine dependence; Z91.040 Latex allergy status; Z91.018 Allergy to other foods; Z88.8 Allergy status to other drugs, medicaments and biological substances; Z79.899 Other long term (current) drug therapy; K21.9 Gastro-esophageal reflux disease without esophagitis; F03.90 Unspecified dementia, unspecified severity, without behavioral disturbance, psychotic disturbance, mood disturbance, and anxiety; W18.30XD Fall on same level, unspecified, subsequent encounter; Y92.009 Unspecified place in unspecified non-institutional (private) residence as the place of occurrence of the external cause; R26.89 Other abnormalities of gait and mobility

== ENCOUNTER → 2024-07-22 | Outpatient (CLI) | payer MEDICARE ==
[~2024-07-22] MED LIST changes: +ACET1TAB55 PO; +ARIC1TAB PO; +LIDO5TD TD
== END ==
LOC: M SOG 07:21
PROVIDERS: ATTEND Orthopaedic Surgery
DX: M25.551 Pain in right hip (principal)

== ENCOUNTER → 2024-08-21 | Outpatient (CLI) | payer MEDICARE | LOC: M SOG 07:26 | PROVIDERS: ATTEND Orthopaedic Surgery | DX: S72.111D Displaced fracture of greater trochanter of right femur, subsequent encounter for closed fracture with routine healing (principal) ==